=== PATIENT | male | born 1960 | race Caucasian/White ===

== ENCOUNTER → 2023-08-10 08:41 | Outpatient (REF) | payer OTHER, SELFPAY ==
--- NOTE | 2023-08-29 11:03 | OID.L.PAT ---
Pulmonary Nodule Pat Letter
- -
08/29/23
KYLEIGH MONTOYA
[address] [facility]
[place] [address]
Dear KYLEIGH,
A pulmonary nodule was seen on an imaging study done by [facility]. This was reviewed by the [facility] Pulmonary Nodule Advisory Board and the following recommendation was made:
Recommendation: No further follow up needed
If you have any questions, please do not hesitate to contact your primary care physician. If you are in need of a Physician, you can go to [email or web address] and click on 'Find a Provider'. Type 'Family Medicine' in the search.
Oncology Nurse Navigator
[facility]
[phone]
--- NOTE | 2023-08-29 11:04 | OID.L.REC ---
Pulmonary Nodule Follow Up
- Recommendation
08/29/23
Pulmonary Nodule Review Recommendations
Your patient, KYLEIGH MONTOYA, had a pulmonary nodule on an imaging study done on 08/10/2023 in the [facility].
This was reviewed by the [facility] Pulmonary Nodule Advisory Board and the following recommendation was made:
Recommendation: No further follow up needed
If you have any questions please do not hesitate to contact us.
Sincerely,
Oncology Nurse Navigator
[facility]
[phone]
== END ==
LOC: RAD 08:41
PROVIDERS: ATTENDING PHYSICIAN Nurse Practitioner Acute Care
DX: I35.0 Nonrheumatic aortic (valve) stenosis (principal)
CPT/HCPCS: 74174; 75572; Q9967

== ENCOUNTER → 2023-08-23 08:41 | Outpatient (REF) | payer OTHER, SELFPAY | LOC: RCS 08:41 | PROVIDERS: ATTENDING PHYSICIAN Thoracic Surgery (Cardiothoracic Vascular Surgery); FAMILY PHYSICIAN Nurse Practitioner Adult Health | DX: I25.10 Atherosclerotic heart disease of native coronary artery without angina pectoris (principal); I35.0 Nonrheumatic aortic (valve) stenosis | CPT/HCPCS: 93306 ==

== ENCOUNTER 2023-09-08 07:04 | Inpatient (IN) | payer OTHER, SELFPAY ==
[2023-08-29 08:46] VITALS: BMI 27.3
[2023-08-29 10:08] LABS: % Basophils 1.1 % (0-2); % Eosinophils 1.9 % (0-6); % Immature Granulocytes 0.3 % (0-0.5); % Lymphocytes 27.9 % (20.5-51.1); % Monocytes 10.5 % (1.7-9.3); % Neutrophils 58.3 % (42.2-75.2); Absolute Basophils 0.1 10^3/uL (0-0.2); Absolute Eosinophils 0.2 10^3/uL (0-0.7); Absolute Lymphocytes 2.6 10^3/uL (1.2-3.4); Absolute Neutrophils 5.5 10^3/uL (1.4-6.5); Hematocrit 44.9 % (39.0-52.0); Hemoglobin 14.5 g/dL (13.0-18.0); Mean Corp Hgb Conc. 32.3 g/dL (33.0-37.0); Mean Corpuscular Volume 77.4 fL (80.0-94.0); Mean Platelet Volume 10.9 fL (7.4-10.4); Nucleated Red Blood Cells % 0 % (-); Platelet Count 206 10^3/uL (130-400); Red Cell Dist. Width 14.6 % (11.5-14.5); White Blood Cell Count 9.4 10^3/uL (4.8-10.8)
[2023-08-29 10:17] LABS: APTT 28.8 Sec (23.4-35.0); INR 0.99; PT 12.9 Sec (11.4-14.6)
[2023-08-29 10:33] LABS: Urine Albumin Trace (Neg - Trace); Urine Bilirubin Negative (Negative); Urine Character Clear (Clear); Urine Color Yellow; Urine Glucose 3+ (Negative); Urine Ketone Negative (Negative); Urine Leukocyte Trace (Negative); Urine Nitrite Negative (Negative); Urine Occult Blood Trace (Negative); Urine Specific Gravity 1.015 (<1.030); Urine Urobilinogen Negative (Neg - 1+)
[2023-08-29 10:48] LABS: NT-proBNP 2530 pg/ml
[2023-08-29 10:56] LABS: ALT (SGPT) 44 U/L (0-50); AST (SGOT) 31 U/L (17-59); Albumin 4.8 g/dl (3.5-5.0); Alkaline Phosphatase 47 U/L (38-126); Blood Urea Nitrogen 23 mg/dl (9-20); Carbon Dioxide 25 mmol/L (22-30); Chloride 100 mmol/L (98-107); Direct Bilirubin 0.3 mg/dl (0.0-0.4); Estimated Creatinine Clearance 86 ml/min; Glucose 165 mg/dl (70-99); Potassium 4.8 mmol/L (3.5-5.1); Sodium 136 mmol/L (135-145); Total Bilirubin 0.7 mg/dl (0.2-1.3); Total Protein 7.9 g/dl (6.3-8.2); eGFR > 60.00
[2023-08-29 10:58] LABS: Urine White Cell 26-30 /HPF (0-5)
[2023-08-29 10:59] LABS: Urine Bacteria Few (Negative)
--- NOTE | 2023-08-29 11:12 | CM ---
spoke to pt and son via language line ( ukranian) in PAT's. we disucsssed preop tave teaching including lifting and driving restrictions. he lives with his son/DIL and 2 grandkids in an apt with 5 steps to enter. he uses a cane and walker if needed.
he has the TAVR educ book, soap and instructions. pts DIL and grandkids speak good albanian. plan is for TAVR 09/07, cm role explained and all questions anwered.
[2023-08-29 12:29] LABS: Glycohemoglobin (HgbA1c) 9.2 % (4.0-5.6)
[2023-09-08] VITALS (22 sets, daily range): BP systolic 124–161; BP diastolic 74–99; BMI 27.3
[2023-09-08 08:18] LABS: Glucose - Point of Care 195 mg/dl (70-99)
--- NOTE | 2023-09-08 09:07 | CM ---
Addendum entered by EFRAIN Frias 09/08/23 09:09:
Correction to below: patient is out of CT Transitional Care RN geographical area. If VN is needed, will need to refer to VN agency.
Original Note:
Pt. in OR today for planned TAVR procedure.
Anticipated DC plan is for home w/ CT Transitional Care RN.
CM to follow.
--- NOTE | 2023-09-08 10:00 | W.CVOR.SURPR ---
CVOR Surgeon Immed Pre Op
-
I have examined this patient prior to performance of the scheduled procedure.
The patient's condition is unchanged from the time of the dictated/written History and
Physical and the patient is able to undergo the scheduled procedure.
TF TAVR
Full Rescue
He tells me it's mostly his right groin/leg that bothers him at baseline
[2023-09-08 10:42] LABS: ACT-LR - POC 298 Seconds (116-155)
[2023-09-08 10:52] LABS: ACT-LR - POC 358 Seconds (116-155)
[2023-09-08 11:01] LABS: ACT-LR - POC 199 Seconds (116-155)
--- NOTE | 2023-09-08 11:02 | W.PN.CT.SURG ---
CT Surgery Operative Note
-
OPERATIVE REPORT
Preoperative Diagnosis: Severe aortic valve stenosis, symptomatic, s/p STEMI
Postoperative Diagnosis: Same
Procedure(s) Performed: Left trans femoral TAVR with a 26 mm, nominal, Herrmann TAVR valve
Date of Procedure: 09/08/2023
Comorbidities:
1. Severe aortic stenosis, symptomatic, low-flow low gradient
2. History of NC status post PCI
3. Severe peripheral vascular disease with claudication of the right lower extremity
4. Hypertension
5. Hyperlipidemia
6. Diabetes type 2
7. History of tobacco abuse
8. Obese
9. Acute on chronic congestive heart failure with volume overload, LVEDP pre-TAVR was 30 mmHg
Cardiac Surgeon: Martin Lion MD, MS
Mounter Saxophones: Tyrell Du MD
Anesthesia: Conscious Sedation and Local Analgesia
EBL: 200cc
Products: none
Implant: 26 mm HERRMANN Resilia DUSTIN, SN: [id number]
Indication(s) for Procedures: 63-year-old male with symptomatic severe aortic stenosis. CT-TAVR protocol revealed acceptable anatomy for TAVR access and implantation. He initially was being seen for aortic valve replacement with coronary artery
bypass grafting consideration however he developed an NC and underwent emergent stenting. His EF was depressed post procedure. He was reviewed by our multidisciplinary structural heart team shared decision making between his outpatient
second hand, our interventional cardiology, and our cardiac surgery team all with a consensus that he is now more appropriate for transcatheter intervention.
Start time: 1011hrs
Deployment time: 1044hrs
End time: 1056hrs
Radiation Dose (mGy): 269.92
DAP (cm2.Gy): 31.6917
Fluoroscopy time (minutes): 7.1
Contrast volume (ml): 63
TAVR gradient (mmHg): 3mmHg
Heparin Dose: 7000units
Protamine Dose: 30mg
Final Valve Positionin/30
LVEDP, mmH
Findings: Preoperative LVEF was 55% and was 55% following TAVR without inotropic support. Function was overall normal without regional wall motion abnormalities or dyskinesia. The aortic valve was well seated without detectable PVL and mean gradient
across the new valve was 3mmHg. following deployment of valve, the patient regained [place] rhythm and returned to sinus while on the seed laboratory technician table. There was successful placement of 26 mm abdominal volume TAVR valve without acute complications. Of
note, he has severe stenosis of his common iliac on the right side with dampening of the blood pressure approxi-20 mmHg. We dilated the left, iliac multiple times with different catheter sizes. The valve was able to pass without significant
obstruction. An LVEDP was measured and found to be 30 mmHg pre-TAVR deployment indicating acute on chronic congestive heart failure. Lasix will be given in the ICU.
Access:
1. Device -left common femoral artery, perclose x 2 + 8Fr angioseal
2. Pigtail -right common femoral artery no Angio-Seal was used as he will need to come back for intervention on his right common iliac artery
3. Transvenous Pacer -right common femoral vein
Description of Procedure: The patient was taken to the seed laboratory technician. Their identity and procedure to be performed were verified and they were positioned supine on the seed laboratory technician table. Induction via conscious sedation. The patient was then prepped and
draped from chin to thigh in a sterile fashion. A preoperative time-out was performed with all members of the team present. Arterial and venous access was performed using fluoroscopy using micropuncture and Seldinger technique. Two perclose devices
were used on the device side followed by access to the aorta with a stiff wire to facilitate E-sheath placement. Prior to placement of the e- sheath, we had to dilate the tract as well as the e-sheath. Propofol was used to lubricate the shaft of
the device sheath as well as lubricate the inside. Heparin was given. A stiff straight wire and AL-1 catheter was used to cross the aortic valve. An LVEDP was measured here. The stiff wire was exchanged for an extra stiff coiled tip wire. The
valve was prepped and mounted on to the device carrier. An ACT of >250 was achieved. We verified x 3 that the valve was mounted in the correct orientation with the skirt of the valve directed toward the tip of the device carrier. We advanced the
device into the descending thoracic aorta where the valve was them mounted onto the balloon under fluoroscopy. The device was flexed and advanced over the arch into the root and positioned across the aortic valve. Contrast fluoroscopy was used to
visualize the prosthesis across the valve and to guide positioning. A pigtail catheter in the RCC as used as a guide. We aimed to have the bottom of the device marker at the annular hinge point. The device sheath was pulled back. We performed a
quick pre-deployment time out. The pacer was turned on and had capture. Blood pressure fell accordingly, angiography was done to verify the intended final placement and the valve was deployed with 5 seconds of rapid pacing to nominal volume. The
balloon was deflated and the pacer was turned off. We had recovery of vitals. The device carrier was unflexed and positioned back in the descending thoracic aorta. A transthoracic echocardiogram was performed. The device was removed from the
E-Sheath maintaining wire access followed by removal of the E-sheath as we cinched down the perclose devices. There was acceptable hemostasis. The pigtail was withdrawn into the descending/abdominal and completion aortogram with runoff run-off
angiography was performed. There was no stenosis or dissection of the left iliofemoral systems. He had baseline right iliofemoral disease which will be addressed later. There was acceptable hemostasis of bilateral groins and manual pressure was
held following wire removal. Low dose protamine was administered after checking another ACT. Lasix will be given in the CVICU/recovery.
All instrument, sponge, and needle counts were confirmed to be correct x 2 at the end of the operation. The patient was transferred to the cardiac intensive care unit in stable condition.
I, Dr. Martin Lion, was present, scrubbed for, and performed all critical elements of this procedure.
Martin Lion MD
Cardiothoracic Surgeon
[facility]
This operative dictation was created using the [employer] dictation system. Please excuse any grammatical, typographical, or 'sound alike' errors
--- NOTE | 2023-09-08 11:14 | ITS.CL.TAVR ---
Wire Spinner - TAVR Report
TAVR PRocedure
Procedure Report:
TRANSCATHETER AORTIC VALVE REPLACEMENT REPORT
Date: 09/08/2023
Referring physician: Rafael Carey MD
Operators:
credit collection specialist: Nikko Du MD
Cardiac surgeon: Martin Lion MD
Procedure:
Conscious sedation was provided by anesthesia. Using a micropuncture technique, 6F sheaths were placed in the RFA and RFV. A transvenous pacemaker was advanced to the RV and excellent thresholds obtained. Angiography of the right femoral artery
sheath demonstrated a mid BUSINESS CONTINUITY MANAGER position and an 80-90% focal stenosis in the mid right external iliac artery. An angulated hydrophilic guidewire was needed to advance the pigtail catheter to the aortic root where low volume injections were performed
to identify an appropriate angle for valve deployment. Access was then obtained in the left femoral artery using a micropuncture technique. A 6Fsheath was placed and angiography confirmed a BUSINESS CONTINUITY MANAGER puncture site. Heparin 4000 units was administered.
Angiography showed a 50-60% proximal left external iliac artery stenosis which I did not feel needed to be treated to get the Ramos valve through the sheath. Two perclose sutures were preset using the preclose technique. An 8F sheath was placed
in the LFA and an Amplatz super stiff wire advanced into the thoracic aorta. The ileofemoral vessels were dilated using the Ramos 16 F dilator. An Ramos E sheath was advanced into the descending thoracic aorta. Further predilatation using the
16 Montenegrin dilator through the Ramos sheath was performed to maximize her chance of getting the valve through the borderline small external iliac artery. Propofol was used to coat the delivery system and the inside of the sheath to maximize chance
of success. Additional heparin 3000 units was administered. The valve was crossed using a diagnostic 6F AL1 catheter and a straight wire. An Amplatz extra stiff wire with a homemade curve was placed in the LV apex. Balloon aortic valvuloplasty was
not performed. An Ramos 26 mm Ramya S3 valve (Resilia) was then advanced through the E sheath and prepared for transit around the aortic arch. The valve was carefully advanced across the aortic annulus and deployed during rapid ventricular
pacing. Echocardiography and aortography confirmed an excellent result. The mean gradient across the valve was 3 mmHg with no aortic insufficiency. The valve deployment system was removed. The Ramos E sheath was then removed and hemostasis
obtained with the two perclose sutures and an 8 Montenegrin Angio-Seal. Final angiography demonstrated no evidence of ileofemoral dissection/perforation and good runoff below the common femoral artery. The pacemaker was removed and the RFV sheath
secured in position. 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
Radiation (mGy): 269
DAP (cm2.Gy): 31.9
Fluoroscopy time: 7.1 minutes
Conclusions: Successful placement of 26 mm Ramya S3 aortic valve via left transfemoral approach with no acute complications.
Copy to: Rafael Carey MD, Krhis Queen MD
--- NOTE | 2023-09-08 11:29 | W.PN.UPDATE ---
Update Note
Progress Note Update
Reviewed Mr. Gutierrez with the heart team in the preTAVR SDM meeting and confirmed 26mm S3 via left transfemoral access. Patient will resume aspirin and Brilinta post TAVR. LVEDP 30 mmHg. #26mm S3 Resilia (serial# [id number]) successfully deployed via
left transfemoral access. Post implant MG 3mmHg.
[2023-09-08 12:41] LABS: Glucose - Point of Care 163 mg/dl (70-99)
[2023-09-08] MEDS: LASIX 40 MG IV (13:25)
[2023-09-08] MEDS: ANCEF 10 IV (13:25)
[2023-09-08] MEDS: ASPIR LOW (ENTERIC COATED) PO (13:26)
[2023-09-08] MEDS: ROXICODONE 2.5 MG PO (13:54)
--- NOTE | 2023-09-08 14:13 | CM ---
Addendum entered by Patricia Wei RN 09/08/23 14:14:
Patient is in the OR today.
Original Note:
Chart reviewed. Patient is Persian speaking, independent of ADLS, lives with his son/DIL and 2 grandkids in an apt with 5 steps to enter. he uses a cane and walker if needed. Plan is for the patient to return home. CM to follow
[2023-09-08 17:22] LABS: Glucose - Point of Care 195 mg/dl (70-99)
[2023-09-08] MEDS: GLUCOTROL 5 MG PO (17:25)
[2023-09-08] MEDS: CRESTOR 10 MG PO (17:25)
[2023-09-08] MEDS: ANCEF 5 IV (17:26)
[2023-09-08] MEDS: NOVOLOG FLEXPEN-MODERATE RESISTANCE SC (17:27)
--- NOTE | 2023-09-08 18:03 | PTCARENOTE ---
Pt received from recovery area post TAVR. Pt speaks only [place], translation provided by his daughter. Pt with bilateral femoral groin sites, some drainage from left femoral artery site, dressing changed once and steristrip applied, no further
bleeding or hematoma noted. (Pt c/o right groin/leg pain which is not new, plan for stent in 4 weeks per ) Pt voiding without problem. Pt up off bedrest, walks with a cane independently. Telemetry shows sinus rhythm with frequent PVC's and
pairs. Plan for CXR and ECHO on 09/08.
[2023-09-08] MEDS: ISMO 20 MG PO (19:42)
[2023-09-08] MEDS: ZOFRAN 4 MG IV (20:25)
--- NOTE | 2023-09-08 20:33 | PTCARENOTE ---
Ivett SANCHEZ at bedside. Pt w/ one episode of emesis. IV Zofran administered. See MAR. L groin w/ drainage noted on dsg. R groin c/d/i. Pt w/ b/l pedal doppler pulses. neuro check WNL. See worklist. Currently in bed; call priscila w/in reach. at
bedside.
[2023-09-08] MEDS: BRILINTA 90 MG PO (20:43)
[2023-09-08 21:35] LABS: Glucose - Point of Care 154 mg/dl (70-99)
[2023-09-08 21:40] LABS: Hematocrit 41.9 % (39.0-52.0); Mean Corp Hgb Conc. 33.4 g/dL (33.0-37.0); Mean Corpuscular Hgb 25.3 pg (27.0-31.0); Mean Corpuscular Volume 75.6 fL (80.0-94.0); Mean Platelet Volume 10.6 fL (7.4-10.4); Platelet Count 188 10^3/uL (130-400); Red Blood Cell Count 5.54 10^6/uL (4.70-6.10); Red Cell Dist. Width 14.6 % (11.5-14.5); White Blood Cell Count 13.1 10^3/uL (4.8-10.8)
--- NOTE | 2023-09-08 21:40 | PTCARENOTE ---
Pt w/ another episode of emesis. Ivett SANCHEZ at bedside to translate. Pt reports feeling better after. PRN Maalox and Compazine ordered as needed. BMP, CBC, and Mag ordered and drawn. Labs sent. Pt appears shaky. Accu-check 154. BP 132/91. Pt told to
use call francois for assistance and keep HOB above 30 degrees.
[2023-09-08 22:19] LABS: Blood Urea Nitrogen 26 mg/dl (9-20); Carbon Dioxide 21 mmol/L (22-30); Chloride 100 mmol/L (98-107); Estimated Creatinine Clearance 86 ml/min; Glucose 156 mg/dl (70-99); Magnesium 1.8 mg/dl (1.6-2.3); Potassium 4.3 mmol/L (3.5-5.1); Sodium 136 mmol/L (135-145); eGFR > 60.00
--- NOTE | 2023-09-08 23:03 | PTCARENOTE ---
Pt w/ 102.9 temp. Ivett SANCHEZ made aware. Swabbed pt for covid and flu. Urine cultures ordered.
[2023-09-08 23:18] LABS: COVID-19 Antigen Negative (Negative)
[2023-09-09] VITALS (13 sets, daily range): BP systolic 89–153; BP diastolic 56–86
--- NOTE | 2023-09-09 00:07 | PTCARENOTE ---
Ivett Valentino at bedside. Rechecked temp for 100.9. Pt refusing tylenol. Pt w/ one incontinent episode. Hygiene performed. L vaishali dsg. changed. Hemestasis pad, gauze and Tegaderm applied. R vaishali is c/d/i.
[2023-09-09 04:27] LABS: Hematocrit 42.8 % (39.0-52.0); Hemoglobin 13.8 g/dL (13.0-18.0); Mean Corp Hgb Conc. 32.2 g/dL (33.0-37.0); Mean Corpuscular Hgb 25.3 pg (27.0-31.0); Mean Corpuscular Volume 78.4 fL (80.0-94.0); Mean Platelet Volume 10.5 fL (7.4-10.4); Platelet Count 174 10^3/uL (130-400); Red Blood Cell Count 5.46 10^6/uL (4.70-6.10); Red Cell Dist. Width 14.6 % (11.5-14.5); White Blood Cell Count 19.9 10^3/uL (4.8-10.8)
[2023-09-09 04:54] LABS: Blood Urea Nitrogen 25 mg/dl (9-20); Calcium 9.8 mg/dl (8.4-10.2); Carbon Dioxide 21 mmol/L (22-30); Chloride 101 mmol/L (98-107); Estimated Creatinine Clearance 86 ml/min; Glucose 148 mg/dl (70-99); Potassium 3.9 mmol/L (3.5-5.1); Sodium 139 mmol/L (135-145); eGFR > 60.00
--- NOTE | 2023-09-09 04:58 | PTCARENOTE ---
Pt temp down to 98.0. Pt appears less drowsy and more alert. No more episodes of emesis. Pt reports feeling better.
[2023-09-09 06:41] LABS: Urine Albumin Negative (Neg - Trace); Urine Bilirubin Negative (Negative); Urine Character Clear (Clear); Urine Color Yellow; Urine Glucose 3+ (Negative); Urine Ketone 2+ (Negative); Urine Leukocyte Trace (Negative); Urine Nitrite Negative (Negative); Urine Occult Blood Negative (Negative); Urine Specific Gravity 1.015 (<1.030); Urine Urobilinogen Negative (Neg - 1+)
--- NOTE | 2023-09-09 07:14 | W.PN.CT ---
Documented by User: Ivett Rasmussen PA-C 09/09/23 07:14
Today's Communication / Plan
-
-pod #1
-new LBBB postop on 09/07 - noted to have RBBB on ECG this am. Will leave NPO and discuss with Cardiology re: possible pacer. Lopressor is on hold
-vomited several times undigested food - will avoid narcotics, felt slightly better after Zofran. Denies abdominal discomfort, abdom exam unremarkable
-Tm 102.9- pt was under multiple blankets - normal temp this am. Checked UA, nasal swab (negative). Denies cough or urinary sxs. BP 134/75, pox 97% on 2L
-diuresed with 40 iv Lasix post TAVR (LVEDP was 30)
-nsr high 90s-low 100s, PVCs. No soren or pauses
-Echo today
-current meds (ASA, Brilinta, Diovan, Norvasc, Lasix, Ismo, Crestor, Glucotrol). Lopressor held d/t new LBBB
-encourage IS, OOB, ambulate
Assessment / Plan
-
- Symptomatic severe - s/p Left trans femoral TAVR with a 26 mm, nominal, Ramos TAVR valve on 09/08/23, pod #1
- Acute on chronic congestive heart failure with volume overload, LVEDP pre-TAVR was 30 mmHg- diuresed with 40 mg iv Lasix
- Intraop TTE: LVEF was 55% preop and postop without inotropic support, regional wma.The aortic valve was well seated without detectable PVL and mean gradient across the new valve was 3mmHg.
- CAD, Hx STEMI, s/p RCA stent 2011 and LAD and Circ stents 2018 - on ASA and Brilinta at home
- Severe peripheral vascular disease with claudication of the right lower extremity
- Hypertension
- Hyperlipidemia
- Diabetes type 2 (HgA1c 9.2)
- History of tobacco abuse
- Acute postop LBBB on 09/07 and RBBB on 09/08
- Acute postop nausea/vomiting/fever
Discussed patient care with: Nursing and Care Team
Subjective
Procedure
- s/p Left trans femoral TAVR with a 26 mm, nominal, Ramos TAVR valve on 09/08/23
-
Date of Service: September 08, 2023
Objective Data
-
Lab Results
09/08/23 21:33
PT 12.9 Sec (11.4-14.6) 08/29/23 09:28
INR 0.99 08/29/23 09:28
APTT 28.8 Sec (23.4-35.0) 08/29/23 09:28
Vital Signs
Vital Signs
Temp Pulse Resp BP Pulse Ox
99.1 F 96 20 155/99 97
09/08/23 20:02 09/08/23 20:45 09/08/23 20:02 09/08/23 19:27 09/08/23 20:02
CT Intake/Output/Weight
09/08/23 09/08/23 09/09/23
06:59 18:59 06:59
Intake Total 240 / 240
Output Total 750 / 750
Balance -510 / -510
SaO2: 97
Physical Exam
-
General: Awake and AOx3 (speaks Ukranian and Hungarian)
Cardiovascular: Regular rate & rhythm, No Murmurs and No Rub
Respiratory: Decreased Breath Sounds
Incision: Other (groins are cdi, soft, nontender, no hematoma b/l)
Extremities: No Edema (DPs by Doppler b/l, warm b/l)
Data Reviewed
-
Lab Results: Results Reviewed
Medications: Active Meds Reviewed
Chest X-Ray: Report Reviewed and Image Reviewed
ECG: Report Reviewed and Image Reviewed

Documented by User: Barbra LangstonAPOLLO wallis 09/09/23 11:37
Assessment / Plan
-
- Symptomatic severe - s/p Left trans femoral TAVR with a 26 mm, nominal, Ramos TAVR valve on 09/08/23, pod #1
- Acute on chronic congestive heart failure with volume overload, LVEDP pre-TAVR was 30 mmHg- diuresed with 40 mg iv Lasix
- Intraop TTE: LVEF was 55% preop and postop without inotropic support, regional wma.The aortic valve was well seated without detectable PVL and mean gradient across the new valve was 3mmHg.
- CAD, Hx STEMI, s/p RCA stent 2011 and LAD and Circ stents 2017 - on ASA and Brilinta at home
- Severe peripheral vascular disease with claudication of the right lower extremity
- Hypertension
- Hyperlipidemia
- Diabetes type 2 (HgA1c 9.2)
- History of tobacco abuse
- Acute postop LBBB on 09/07 and RBBB on 09/08
- Acute postop nausea/vomiting/fever
- acute on chronic systolic heart failure (LVEDP 30mmHg)
[2023-09-09 07:34] LABS: Urine Bacteria Few (Negative); Urine Red Blood Cell 0-2 /HPF (0-2); Urine White Cell 0-2 /HPF (0-5)
--- NOTE | 2023-09-09 07:43 | W.PN.ANS.POP ---
Anesthesia Post Operative
- Anesthesia Post Op Note
Vital Signs Stable-See Nursing Note: Yes
Airway Patent: Yes
Adequate Pain Control: Yes
Change in Mental Status: No
Current Postoperative Nausea & Vomiting: Yes (antiemetics ordered PRN)
Anesthesia Complications: No
General Anesthetic Recall: No
Unplanned Admission: No
Post Op Hydration Adequate: Yes
- -
Pt does not speak Belarusian, spoke with RN- pt nausea and vomiting last night. Temp increased, all other VSS.
[2023-09-09 08:41] LABS: Glucose - Point of Care 141 mg/dl (70-99)
[2023-09-09] MEDS: CRESTOR 10 MG PO (09:52)
[2023-09-09] MEDS: GLUCOTROL 5 MG PO ×2 (09:53→18:44)
[2023-09-09] MEDS: NORVASC 10 MG PO (09:53)
[2023-09-09] MEDS: LASIX 20 MG PO (09:53)
[2023-09-09] MEDS: ASPIR LOW (ENTERIC COATED) 81 MG PO (09:53)
[2023-09-09] MEDS: ISMO 20 MG PO ×2 (09:53→20:14)
[2023-09-09] MEDS: NOVOLOG FLEXPEN-MODERATE RESISTANCE SC ×2 (09:54→14:37)
--- NOTE | 2023-09-09 09:55 | PTCARENOTE ---
Pt denies nausea, OOB with assist of one, encouraged to use incentive spirometer.
--- NOTE | 2023-09-09 11:12 | W.PN.UPDATE ---
Update Note
Progress Note Update
Patient with RBBB today and LBBB 09/08/23. cardiology consulted for PPM. Tmax was 102.9F last evening and morning WBC 19.9. Blood/urine cultures ordered.
--- NOTE | 2023-09-09 11:13 | CM ---
Chart reviewed. Patient is independent of ADLS, lives with his son and DIL, 2 grandkids in a apartment, 5 ARLE[address], ambulates with a SPC and RW. Patients DIL notified us of patient's change in insurance to [facility], ID# [id number]. Admissions
and CT surgery made aware. Plan is for the patient to return home. CM to follow
--- NOTE | 2023-09-09 11:25 | PN.CDI ---
CDI
- -
CDI:
Physician Documentation Request
Admit Date: 09/08/23 07:04
Dear Doctor Amisha,
09/08 Progress note as well as OR report states ' Acute on chronic congestive heart failure with volume overload'
Echo 09/07 report includes 'EF 55-60%'
Please provide further specificity regarding the most likely type of CHF you are evaluating, treating or monitoring.
Type
Systolic
Diastolic
Combined Systolic/Diastolic
Other
Use of terms such as suspected, likely, concern for, or probable (associated with a specific diagnosis that is being evaluated, monitored, or treated as if it exists) are acceptable and can be coded in the inpatient setting, when documented at the
time of discharge.
Thank you,
Abi Nguyen RN, BSN
CDI Specialist
tiger text
Please use your independent medical judgment in providing your response.
--- NOTE | 2023-09-09 12:21 | W.PN.CD ---
Today's Communication / Plan
-
- NPO after midnight
- PPM tomorrow in AM.
Impression / Plan
-
:
S/P 26mm Ramya S3 TAVR- 09/07. No acute complications and good hemodynamic result. Spiked fever to 102.9 09/08 AM.
WBC 19.9k now down to 12.7. BC x 2 drawn. Urine cx sent.
ID is following and treating empirically with antibiotics.
ECHO 09/08 shows gradient 3 mm Hg and no AI
Fever: ID to decide about ABX while blood cultures percolate
Severe conduction system disease
-alternating BBB -suggestive of infrahisian block
- had LBBB and then some RBBB.
-Dobutamine started and currently sinus tachycardia with 2:1 conduction noted
Expect PPM on 09-11
-Had another episode of 10-second pause this afternoon 09/11/23 . Transcutaneous pads in place.
-Currently asymptomatic and tolerating dobutamine 2.5.
-Plan for pacemaker in a.m.
Outpt tack cleaner Rafael Carey
Physical Exam
Vital Signs/Labs
Vital Signs
Temp Pulse Resp BP Pulse Ox
98.2 F 85 20 118/58 97
09/09/23 11:25 09/09/23 07:45 09/09/23 11:25 09/09/23 07:29 09/09/23 11:25
09/08/23 09/09/23 09/10/23
06:59 06:59 06:59
Actual Weight 78.925 kg
09/09/23 04:02
09/09/23 04:02
PT 12.9 Sec (11.4-14.6) 08/29/23 09:28
INR 0.99 08/29/23 09:28
APTT 28.8 Sec (23.4-35.0) 08/29/23 09:28
Magnesium 1.8 mg/dl (1.6-2.3) 09/08/23 21:33
08/29/23
09:28
Ibo-L-Vngacfbxsbp Pept 2530
Physical Exam
Constitutional: No acute distress and Comfortable
EENT: Anicteric and Moist mucous membranes
Cardiovascular: Rhythm & rate is regular, Pedal edema is absent and JVD pressure is normal
Respiratory: Respiratory effort normal, Lungs clear to auscul. and Wheeze Absent
GI: Soft, Distention absent and Non tender
Neuro/Psych: Alert, Oriented and AO x 3
Data Reviewed
-
Date of Service: September 09, 2023
Medical Decision Making: Reviewed Test Results and Independent Historian Assessment
EKG: Tracing Personally Visualized and interpreted
Echo: Report Reviewed by me
Labs: Labs Reviewed by me
Old Records: Reviewed
Critical Care Time (in minutes): 35
[2023-09-09 12:29] LABS: Glucose - Point of Care 126 mg/dl (70-99)
--- NOTE | 2023-09-09 13:13 | W.PN.CD ---
Today's Communication / Plan
-
ID consult requested re possible empiric ABX until cultures back
PPM Tuesday (has shown RBBB and LBBB)
Impression / Plan
-
: S/P 26mm Ramya S3 TAVR yesterday 09-07. No acute compications and good hemodynamic result. Spiked fever to 102.9 last night. He feels 'normal'. WBC 19.9k this AM. BC x 2 drawn.Urine cx sent. I asked ID to decide whether to treat with IV ABX
until blood cx results are back in 48-72 hours. ECHO today shows gradient 3 mm Hg and no AI
Fever: ID to decide about ABX while blood cultures percolate
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 PPM was to be placed but deferred today due to fever last night. Expect PPM on 09-11
Outpt wreath maker Rafael Carey
I had family meeting using cook helper pastry phone. All questions answered.
Physical Exam
Vital Signs/Labs
Vital Signs
Temp Pulse Resp BP Pulse Ox
98.2 F 85 20 118/58 97
09/09/23 11:25 09/09/23 07:45 09/09/23 11:25 09/09/23 07:29 09/09/23 11:25
09/08/23 09/09/23 09/10/23
06:59 06:59 06:59
Actual Weight 174 lb
09/09/23 04:02
09/09/23 04:02
PT 12.9 Sec (11.4-14.6) 08/29/23 09:28
INR 0.99 08/29/23 09:28
APTT 28.8 Sec (23.4-35.0) 08/29/23 09:28
Magnesium 1.8 mg/dl (1.6-2.3) 09/08/23 21:33
08/29/23
09:28
Sdq-W-Yrtstbpvvms Pept 2530
Physical Exam
Constitutional: No acute distress and Comfortable
EENT: Anicteric
Cardiovascular: Rhythm & rate is regular and Murmur/rub/gallop absent
Respiratory: Respiratory effort normal and Lungs clear to auscul.
GI: Non tender
Neuro/Psych: AO x 3 and Motor deficits absent
Other: Cath Site (both groins clean, dry no hematoma)
Data Reviewed
-
Date of Service: September 09, 2023
--- NOTE | 2023-09-09 13:37 | CON.ID ---
Consultation
-
Date/Time Consultation Requested: September 09, 2023 1309
Date/Time Consultation Performed: September 09, 2023 1340
Requesting Provider: Dr. Nikko Du
Performing Provider: Dr. Nanci Moran
Reason for Consultation: Fever postop TAVR
Chief Complaint / Past History
Chief Complaint
Valve surgery
History of Present Illness
63-year-old male with history of diabetes mellitus, coronary artery disease, severe aortic stenosis, who was electively admitted yesterday September 08, 2023 and underwent TAVR yesterday. Post- op right bundle branch block and left bundle branch block,
planned for PPM placement today. However last night he spiked a fever to 102.9 then 100.9 at midnight. Today his white count increased from 13.1-19.9. PPM placement cancelled. Today patient reports he feels well. No chills/sweats. No cough. No
n/v/diarrhea. No dysuria/urgency.
Past History
Additional Past Medical History:
Diabetes mellitus type 2
Hypertension
HLD
CAD status post stents
Aortic stenosis
CHF
PAD
Pulmonary nodule
Allergy History:
No Known Allergies Allergy (Verified 09/08/23 07:25)
Medications Reviewed: Yes
Current Antibiotics:
none
Social History
Tobacco: Former Smoker
Alcohol: None
Drug: None
Personal:
Family History
Family History: Not Pertinent
Review of Systems
Review of Systems
General: Negative Chills or Change in Appetite
HEENT: Negative Sinus Problems, Headache or Pharyngitis
Cardiovascular: Negative Chest Pain
Respiratory: Negative Dyspnea or Cough
Gasteroenterology: Negative Nausea or Vomiting
Genital / Urological: Negative Dysuria or Flank Pain
Skin / Hair / Nails: Negative Rash
Neurological: Negative Headache or Dizziness
All systems: All other systems were reviewed and were negative
Vital Signs
Temp Pulse Resp BP Pulse Ox
98.2 F 85 20 118/58 97
09/09/23 11:25 09/09/23 07:45 09/09/23 11:25 09/09/23 07:29 09/09/23 11:25
Selected Entries
09/08/23
23:02 09/09/23
00:06
Temp 102.9 F H 100.9 F H
Physical Exam
Physical Exam
Constitutional: No Acute Distress and Comfortable
Head: Other (No frontal or maxillary sinus tenderness,.)
Eyes: No Conjunctival Hemorrhage and Sclera Anicteric
Cardiovascular: Regular Rate and S1/S2
Pulmonary: Clear
Gastrointestinal: Soft, Non Tender, Non Distended and Normal Bowel Sounds
Genito-Urinary: Negative CVA Tenderness
Extremities: Negative Edema or Erythema
Musculoskeletal: Negative Spinal Tenderness
Neurological: AO x 3
Lab / Diagnostic Study Results
09/09/23 04:02
09/09/23 04:02
Abs Immat Gran (auto) 0.0 10^3/uL (0-0.05) 08/29/23 09:28
Absolute Neuts (auto) 5.5 10^3/uL (1.4-6.5) 08/29/23 09:28
Absolute Lymphs (auto) 2.6 10^3/uL (1.2-3.4) 08/29/23 09:28
Absolute Monos (auto) 1.0 10^3/uL (0.1-0.6) H 08/29/23 09:28
Absolute Basos (auto) 0.1 10^3/uL (0-0.2) 08/29/23 09:28
Immature Gran % 0.3 % (0-0.5) 08/29/23 09:28
Neutrophils % 58.3 % (42.2-75.2) 08/29/23 09:28
Lymphocytes % 27.9 % (20.5-51.1) 08/29/23 09:28
Monocytes % 10.5 % (1.7-9.3) H 08/29/23 09:28
Eosinophils % 1.9 % (0-6) 08/29/23 09:28
Basophils % 1.1 % (0-2) 08/29/23 09:28
PT 12.9 Sec (11.4-14.6) 08/29/23 09:28
INR 0.99 08/29/23 09:28
Ur Squamous Epith Cells 3-5 /LPF (Few) 09/09/23 05:56
Microbiology Results
Micro:
09/09/23 12:16 Blood Culture - Pending
Blood/Venous
09/09/23 11:39 Blood Culture - Pending
Blood/Venous
09/09/23 05:56 Urine Culture - Pending
Urine
09/08/23 22:58 Influenza Types A & B (GISELLE) - Final
Nasal Swab Negative for Influenza A & B, NAAT
Negative results must be combined with clinical observations
and patient history.
Nucleic Acid Amplification test (NAAT)performed on the
[employer] platform.
08/29/23 09:11 MRSA Screen - Final
Nose No Methicillin Resistant Staphylococcus aureus isolated.
08/29/23 09:45 Urine Culture - Final
Urine Streptococcus agalactiae
09/09/23 CXR: No radiographic evidence for complication following TAVR. Mild cardiomegaly without evidence for acute pulmonary edema.
Assessment / Plan
# Fever and leukocytosis
-suspect reactive to POD#1 TAVR
- CXR neg, UA neg.
- COVID/Influenza negative.
-Blood cultures pending.
- Can start empiric cefazolin pending cx data.
- Follow temps/wbc.
[2023-09-09] MEDS: DIOVAN PO (14:37)
[2023-09-09] MEDS: ANCEF 10 IV ×2 (15:03→21:59)
[2023-09-09 16:46] LABS: Glucose - Point of Care 166 mg/dl (70-99)
--- NOTE | 2023-09-09 18:11 | W.PN.UPDATE ---
Update Note
Progress Note Update
Notified of a 4.5-second pause observed by RN on monitor. Patient was getting out of bed and patient became unresponsive. Per Dr. Du, initiate dobutamine at 2.5mcg/kg/min. Will have atropine and defibrillator at bedside. Patient to go for a
permanent pacemaker on Tuesday, permanent pacemaker today was delayed due to fevers last night. Will continue to monitor fever trend and white blood cell count trend. If patient has recurrent pauses may need to go to [employer] for temporary pacing
wire. Attending physician notified.
[2023-09-09] MEDS: NOVOLOG FLEXPEN-MODERATE RESISTANCE 1 UNITS SC (18:44)
[2023-09-09] MEDS: DOBUTREX 500 MG 250 IV (18:55)
--- NOTE | 2023-09-09 19:00 | PTCARENOTE ---
Patient received as transfer from IVU. VS obtained, stable. Patient Indian speaking, updated to reason for transfer, states he understands. at bedside. Dobutamine infusion started as ordered.
--- NOTE | 2023-09-09 19:36 | PTCARENOTE ---
Pt seen by , blood and urine cultures done. Pt started on ancef. Max. temp this morning of 100 @07:30. Telemetry showed sinus rhythm with RBBB at a rate @ 90's for most of the day.
At 18:15 pt helped OOB to the chair to eat. Heart rate dropped to 30, pt briefly unresponsive, 4.5 second pause noted. Rapid response called and later cancelled. Pt responsive again (significant language barrier) , BP 138/80. Defib pads placed on
his chest. Dr. Du notified and also Dr. Albrecht. Diamond SANCHEZ also aware, pt transferred to CVICU for close monitoring and dobutamine. Plan conveyed to pt and his and they stated understanding.
--- NOTE | 2023-09-09 19:50 | ECGCV ---
<Ed Edwin, CTPA> notified of ECG critical value identified by electronic interpretation on ECG completed on <09/09/2023>, at <1947>.
--- NOTE | 2023-09-09 20:00 | PTCARENOTE ---
assumed care of pt from previous RN. pt is Maltese speaking, language line used for communication and assessment. pt A&Ox4. EKG obtained per CV BAG BUNDLERFeng. pt sinus tach w/ 2nd degree AVB w/ 2:1 AV conduction, RBBB. POX 96% on 2 L NC. abd s/n, +BS.
no c/o nausea at time of assessment. voiding in urinal. no edema noted. doppler DP pulses obtained. palpable radial pulses. b/l groin sites CDI on assessment. see worklist for complete nursing assessment, interventions, VS, and I&Os.
[2023-09-09] MEDS: MAGNESIUM OXIDE 500 MG PO (21:59)
[2023-09-09] MEDS: KCL ELIXIR 40 MEQ PO (21:59)
[2023-09-10] VITALS (19 sets, daily range): BP systolic 83–169; BP diastolic 39–88; BMI 26.0
--- NOTE | 2023-09-10 00:15 | PTCARENOTE ---
Addendum entered by Bertha Goncalves RN 09/10/23 00:32:
pt on 2 L NC.
Original Note:
pt reassessed. VSS. sinus tach on tele-monitor, RBBB. POX 96%. pt remains afebrile. no c/o pain at this time.
[2023-09-10 00:29] LABS: Glucose - Point of Care 164 mg/dl (70-99)
--- NOTE | 2023-09-10 04:00 | PTCARENOTE ---
assessment remains unchanged. VSS. sinus tach on tele monitor. HR low 100s. POX 97% on 2 L NC. AM labs collected and sent.
[2023-09-10 04:05] LABS: % Basophils 0.4 % (0-2); % Eosinophils 0.3 % (0-6); % Immature Granulocytes 0.5 % (0-0.5); % Lymphocytes 13.4 % (20.5-51.1); % Neutrophils 71.4 % (42.2-75.2); Absolute Basophils 0.1 10^3/uL (0-0.2); Absolute Eosinophils 0.1 10^3/uL (0-0.7); Absolute Immature Granulocytes 0.1 10^3/uL (0-0.05); Absolute Lymphocytes 2.3 10^3/uL (1.2-3.4); Absolute Monocytes 2.4 10^3/uL (0.1-0.6); Hematocrit 40.4 % (39.0-52.0); Mean Corp Hgb Conc. 32.2 g/dL (33.0-37.0); Mean Corpuscular Hgb 25.3 pg (27.0-31.0); Mean Corpuscular Volume 78.8 fL (80.0-94.0); Mean Platelet Volume 10.8 fL (7.4-10.4); Nucleated Red Blood Cells % 0 % (-); Platelet Count 166 10^3/uL (130-400); Red Blood Cell Count 5.13 10^6/uL (4.70-6.10); Red Cell Dist. Width 14.6 % (11.5-14.5); White Blood Cell Count 16.8 10^3/uL (4.8-10.8)
[2023-09-10 05:07] LABS: Blood Urea Nitrogen 21 mg/dl (9-20); Calcium 9.8 mg/dl (8.4-10.2); Carbon Dioxide 22 mmol/L (22-30); Chloride 98 mmol/L (98-107); Estimated Creatinine Clearance 98 ml/min; Glucose 146 mg/dl (70-99); Sodium 135 mmol/L (135-145); eGFR > 60.00
[2023-09-10] MEDS: ANCEF 10 IV ×3 (05:20→21:04)
[2023-09-10 06:07] LABS: INR 1.09
[2023-09-10 06:08] LABS: APTT 33.3 Sec (23.4-35.0)
--- NOTE | 2023-09-10 06:49 | W.PN.CT ---
Today's Communication / Plan
-
-No major issues overnight
-New postop LBBB/RBBB
-Postop Pauses, 4.5 sec longest
-Postop fever. Afebrile overnight, TM 98.7, WBC 16.8 down from 19.9 yesterday
-On Ancef per ID, blood cultures without growth thus far
-For PPM likely Tuesday
-Postop Echo shows intact TAVR with PG/MG 10/16 no AI
-Cont. current meds (ASA, Brilinta, Diovan, Norvasc, Lasix, Ismo, Crestor, Glucotrol). Lopressor held d/t new LBBB
-OOB into chair
-Monitor groins, currently C/D/I without significant hematoma
Assessment / Plan
-
- Symptomatic severe - s/p Left trans femoral TAVR with a 26 mm, nominal, Ramos TAVR valve on 09/08/23, pod #2
- Acute on chronic congestive heart failure with volume overload, LVEDP pre-TAVR was 30 mmHg- diuresed with 40 mg iv Lasix
- Intraop TTE: LVEF was 55% preop and postop without inotropic support, regional wma.The aortic valve was well seated without detectable PVL and mean gradient across the new valve was 3mmHg.
- CAD, Hx STEMI, s/p RCA stent 2011 and LAD and Circ stents 2017 - on ASA and Brilinta at home
- Severe peripheral vascular disease with claudication of the right lower extremity
- Hypertension
- Hyperlipidemia
- Diabetes type 2 (HgA1c 9.2)
- History of tobacco abuse
- Acute postop LBBB on 09/07 and RBBB on 09/08
- Acute postop tachycardia
- Acute postop nausea/vomiting/fever
- acute on chronic systolic heart failure (LVEDP 30mmHg)
Discussed patient care with: Cardiology, Nursing, Respiratory Therapy, Pharmacy and Care Team
Subjective
Procedure
- s/p Left trans femoral TAVR with a 26 mm, nominal, Ramos TAVR valve on 09/08/23
-
Date of Service: September 10, 2023
Pt c/o mild incisional pain, otherwise feels well
Objective Data
-
Lab Results
09/10/23 03:38
09/10/23 03:38
PT 14.0 Sec (11.4-14.6) 09/10/23 05:47
INR 1.09 09/10/23 05:47
APTT 33.3 Sec (23.4-35.0) 09/10/23 05:47
Vital Signs
Vital Signs
Temp Pulse Resp BP Pulse Ox
98.7 F 105 16 151/81 98
09/10/23 05:00 09/10/23 06:30 09/10/23 06:30 09/10/23 06:00 09/10/23 05:00
CT Intake/Output/Weight
09/09/23 09/09/23 09/10/23
06:59 18:59 06:59
Intake Total 240 / 293.1 53.1 / 293.1
Output Total 600 / 600
Balance 240 / -306.9 -546.9 / -306.9
SaO2: 98 (2L)
Physical Exam
-
General: Awake, Oriented and AOx3
Cardiovascular: Regular rate & rhythm, No Murmurs, No Rub and No Gallop
Respiratory: Decreased Breath Sounds
Incision: Clean, Dry, Intact and Dressing Intact
Extremities: No Edema
Data Reviewed
-
Lab Results: Results Reviewed
Medications: Active Meds Reviewed
Chest X-Ray: Report Reviewed and Image Reviewed
ECG: Report Reviewed and Image Reviewed
--- NOTE | 2023-09-10 07:54 | W.PN.CD ---
Today's Communication / Plan
-
-Plan for pacemaker on Tuesday
-If any significant pauses noted, will place temporary pacemaker over the weekend
Impression / Plan
-
:
S/P 26mm Ramya S3 TAVR yesterday 09-07. No acute complications and good hemodynamic result. Spiked fever to 102.9 09/08 AM. He feels 'normal'.
WBC 19.9k now down to 16.8. BC x 2 drawn. Urine cx sent.
ID is following and treating empirically with antibiotics.
ECHO today shows gradient 3 mm Hg and no AI
Fever: ID to decide about ABX while blood cultures percolate
Severe conduction system disease
-alternating BBB -suggestive of infrahisian block
- had LBBB and then some RBBB.
-Had presyncope and 4.5-second pause
-Transferred to ICU
-Dobutamine started and currently sinus tachycardia with 2:1 conduction noted
Expect PPM on 09-11
Outpt yarding supervisor Rafael Carey
Physical Exam
Vital Signs/Labs
Vital Signs
Temp Pulse Resp BP Pulse Ox
98.7 F 105 16 151/81 98
09/10/23 05:00 09/10/23 06:30 09/10/23 06:30 09/10/23 06:00 09/10/23 06:53
09/09/23 09/10/23 09/11/23
06:59 06:59 06:59
Actual Weight 78.925 kg 75.2 kg
09/10/23 03:38
09/10/23 03:38
PT 14.0 Sec (11.4-14.6) 09/10/23 05:47
INR 1.09 09/10/23 05:47
APTT 33.3 Sec (23.4-35.0) 09/10/23 05:47
Magnesium 2.0 mg/dl (1.6-2.3) 09/10/23 03:38
08/29/23
09:28
Chi-P-Kbwhxktdrji Pept 2530
Physical Exam
Constitutional: No acute distress and Comfortable
EENT: Anicteric and Moist mucous membranes
Cardiovascular: Rhythm & rate is regular, Pedal edema is absent, JVD pressure is normal and Systolic murmur present
Respiratory: Respiratory effort normal, Lungs clear to auscul. and Wheeze Absent
GI: Soft and Non tender
Neuro/Psych: Alert and Motor deficits absent
Data Reviewed
-
Date of Service: September 10, 2023
Medical Decision Making: Reviewed Test Results and Tests Ordered
EKG: Tracing Personally Visualized and interpreted
Echo: Report Reviewed by me
Labs: Labs Reviewed by me
Old Records: Reviewed
Critical Care Time (in minutes): 31
--- NOTE | 2023-09-10 08:00 | PTCARENOTE ---
assumed care of pt from previous RN. walking rounds completed. pt is Hungarian speaking, language line used for communication and assessment. VSS. pt sinus tach w/ BBB. POX 95% on RA. +BS. voiding in urinal. no edema noted. doppler pulses, palpable
radial pulses. b/l groin sites CDI will continue to monitor.
[2023-09-10] MEDS: DIOVAN 320 MG PO (09:43)
[2023-09-10] MEDS: GLUCOTROL 5 MG PO ×2 (09:44→16:36)
[2023-09-10] MEDS: MAGNESIUM OXIDE 500 MG PO ×2 (09:44→21:04)
[2023-09-10] MEDS: CRESTOR 10 MG PO (09:44)
[2023-09-10] MEDS: LASIX 20 MG PO (09:45)
[2023-09-10] MEDS: ISMO 20 MG PO ×2 (09:45→21:04)
[2023-09-10] MEDS: ASPIR LOW (ENTERIC COATED) 81 MG PO (09:45)
[2023-09-10] MEDS: NORVASC 10 MG PO (09:45)
--- NOTE | 2023-09-10 09:51 | W.PN.ID1 ---
Date of Service
Date of Service: September 10, 2023
Today's Communication
Continue cefazolin.
Assessment / Plan
# Fever and leukocytosis - improving
-suspect reactive to POD#2 TAVR
- CXR neg, UA neg.
- COVID/Influenza negative.
-Follow Blood cultures pending.
- Continue empiric cefazolin pending cx data.
- Follow temps/wbc.
#Post-op RBBB/LBBB, pauses
- PPM delayed till 09/11.
#Additional Past Medical History:
Diabetes mellitus type 2
Hypertension
HLD
CAD status post stents
Aortic stenosis
CHF
PAD
Pulmonary nodule
Chief Complaint
-: Fever and Leukocytosis
Subjective / Review of Systems
Feels OK.
Vital Signs / Physical Exam
Vital Signs
Vital Signs
Temp Pulse Resp BP Pulse Ox
98.7 F 117 17 143/64 98
09/10/23 05:00 09/10/23 09:43 09/10/23 09:30 09/10/23 09:43 09/10/23 06:53
Physical Exam
Constitutional: No Acute Distress and Comfortable
Cardiovascular: S1/S2 and Other (tachycardic)
Pulmonary: Clear (anteriorly)
Gastrointestinal: Soft, Non Tender and Non Distended
Extremities: Negative Edema
Neurological: AO x 3
Objective Data
Lab Data
Lab Results
09/10/23 03:38
09/10/23 03:38
PT 14.0 Sec (11.4-14.6) 09/10/23 05:47
INR 1.09 09/10/23 05:47
APTT 33.3 Sec (23.4-35.0) 09/10/23 05:47
Estimated Creat Clear 98 ml/min 09/10/23 03:38
Total Bilirubin 0.7 mg/dl (0.2-1.3) 08/29/23 09:28
AST 31 U/L (17-59) 08/29/23 09:28
ALT 44 U/L (0-50) 08/29/23 09:28
Alkaline Phosphatase 47 U/L (38-126) 08/29/23 09:28
Most recent labs reviewed.
Micro Results:
09/09/23 12:16 Blood Culture - Pending
Blood/Venous
09/09/23 11:39 Blood Culture - Pending
Blood/Venous
09/09/23 05:56 Urine Culture - Pending
Urine
09/08/23 22:58 Influenza Types A & B (GISELLE) - Final
Nasal Swab Negative for Influenza A & B, NAAT
Negative results must be combined with clinical observations
and patient history.
Nucleic Acid Amplification test (NAAT)performed on the
[employer] platform.
08/29/23 09:11 MRSA Screen - Final
Nose No Methicillin Resistant Staphylococcus aureus isolated.
08/29/23 09:45 Urine Culture - Final
Urine Streptococcus agalactiae
09/09/23 CXR: No radiographic evidence for complication following TAVR. Mild cardiomegaly without evidence for acute pulmonary edema.
[2023-09-10] MEDS: NOVOLOG FLEXPEN-MODERATE RESISTANCE SC ×2 (12:55→17:08)
[2023-09-10 16:24] LABS: Glucose - Point of Care 283 mg/dl (70-99)
[2023-09-10] MEDS: NOVOLOG FLEXPEN-MODERATE RESISTANCE 5 UNITS SC (16:25)
--- NOTE | 2023-09-10 18:03 | PTCARENOTE ---
sat patient at edge of bed and attempted to stand and move around a little. pt got very light headed and dizzy, sat back down and got back into bed. remains drowsy but dizziness got better once laying down. remains with multiple rhythms, occasional
pauses noted this afternoon. continuing to monitor.
[2023-09-10 21:41] LABS: Glucose - Point of Care 227 mg/dl (70-99)
--- NOTE | 2023-09-10 23:55 | PTCARENOTE ---
Patient received in bed, AAOX3, ukranian speaking. Afib on monitor, pauses noted. Palpable pulses throughout, no edema noted. Lungs clear, pulse ox 98% on room air. Abdomen round with positive bowel sounds. Good appetite. #20 g in right hand
with Dobutamine gtt infusing as ordered. #20 g in left forearm flushed and patent. call francois within reach
[2023-09-11] VITALS (22 sets, daily range): BP systolic 98–124; BP diastolic 51–85; BMI 26.5
[2023-09-11 04:21] LABS: % Basophils 0.4 % (0-2); % Immature Granulocytes 0.4 % (0-0.5); % Lymphocytes 13.9 % (20.5-51.1); % Monocytes 13.9 % (1.7-9.3); % Neutrophils 70.4 % (42.2-75.2); Absolute Basophils 0.1 10^3/uL (0-0.2); Absolute Eosinophils 0.1 10^3/uL (0-0.7); Absolute Immature Granulocytes 0.1 10^3/uL (0-0.05); Absolute Lymphocytes 1.8 10^3/uL (1.2-3.4); Absolute Monocytes 1.8 10^3/uL (0.1-0.6); Absolute Neutrophils 8.9 10^3/uL (1.4-6.5); Hematocrit 39.5 % (39.0-52.0); Hemoglobin 12.7 g/dL (13.0-18.0); Mean Corp Hgb Conc. 32.2 g/dL (33.0-37.0); Mean Corpuscular Volume 77.6 fL (80.0-94.0); Mean Platelet Volume 10.8 fL (7.4-10.4); Nucleated Red Blood Cells % 0 % (-); Platelet Count 172 10^3/uL (130-400); Red Blood Cell Count 5.09 10^6/uL (4.70-6.10); Red Cell Dist. Width 14.4 % (11.5-14.5); White Blood Cell Count 12.7 10^3/uL (4.8-10.8)
--- NOTE | 2023-09-11 04:39 | W.PN.CT ---
Today's Communication / Plan
-
-No major issues overnight
-New postop LBBB/RBBB
-Postop Pauses, 4.5 sec longest. Currently on Dobutamine gtt @ 2.5 mcg/kg/min, Rhythm is currently NSR with PVC's @ 88 bpm, noted to be tachycardic at times
-Postop fever. Afebrile overnight, TM 98.9, WBC 12.7, down from 16.8 yesterday
-On Ancef per ID, blood cultures without growth thus far
-For PPM likely tomorrow, 09/11
-Postop Echo shows intact TAVR with PG/MG of 6/3 mmHg, no AI
-Cont. current meds (ASA, Brilinta, Diovan, Norvasc, Lasix, Ismo, Crestor, Glucotrol). Lopressor held d/t new LBBB
-Monitor hyponatremia, 133. Fluid restriction
-OOB into chair
-Monitor groins, currently C/D/I without significant hematoma
Assessment / Plan
-
- Symptomatic severe - s/p Left trans femoral TAVR with a 26 mm, nominal, Ramos TAVR valve on 09/08/23, pod #3
- Acute on chronic congestive heart failure with volume overload, LVEDP pre-TAVR was 30 mmHg- diuresed with 40 mg iv Lasix
- Intraop TTE: LVEF was 55% preop and postop without inotropic support, regional wma.The aortic valve was well seated without detectable PVL and mean gradient across the new valve was 3mmHg.
- CAD, Hx STEMI, s/p RCA stent 2011 and LAD and Circ stents 2017 - on ASA and Brilinta at home
- Severe peripheral vascular disease with claudication of the right lower extremity
- Hypertension
- Hyperlipidemia
- Diabetes type 2 (HgA1c 9.2)
- History of tobacco abuse
- Acute postop LBBB on 09/07 and RBBB on 09/08
- Acute postop tachycardia
- Acute postop nausea/vomiting/fever
- acute on chronic systolic heart failure (LVEDP 30mmHg)
- Acute postop hyponatremia, 133
Discussed patient care with: Cardiology, Nursing, Respiratory Therapy, Pharmacy and Care Team
Subjective
Procedure
- s/p Left trans femoral TAVR with a 26 mm, nominal, Ramos TAVR valve on 09/08/23
-
Date of Service: September 11, 2023
Pt offers no complaints
Objective Data
-
PT 14.0 Sec (11.4-14.6) 09/10/23 05:47
INR 1.09 09/10/23 05:47
APTT 33.3 Sec (23.4-35.0) 09/10/23 05:47
Vital Signs
Vital Signs
Temp Pulse Resp BP Pulse Ox
98.3 F 91 18 102/54 98
09/11/23 04:00 09/11/23 04:30 09/11/23 04:30 09/11/23 04:00 09/10/23 20:00
CT Intake/Output/Weight
09/10/23 09/10/23 09/11/23
06:59 18:59 06:59
Intake Total 53.1 / 293.1 167.2 / 167.2
Output Total 600 / 600 900 / 900
Balance -546.9 / -306.9 -732.8 / -732.8
SaO2: 98 (RA)
Physical Exam
-
General: Awake, Oriented and AOx3
Cardiovascular: Regular rate & rhythm, No Murmurs and No Gallop
Respiratory: Decreased Breath Sounds (at bases, otherwise clear)
Sternum: Stable
Incision: Clean, Dry, Intact and Dressing Intact
[2023-09-11 04:48] LABS: Blood Urea Nitrogen 34 mg/dl (9-20); Calcium 9.5 mg/dl (8.4-10.2); Carbon Dioxide 24 mmol/L (22-30); Chloride 99 mmol/L (98-107); Estimated Creatinine Clearance 53 ml/min; Glucose 183 mg/dl (70-99); Magnesium 2.4 mg/dl (1.6-2.3); Potassium 3.9 mmol/L (3.5-5.1); Sodium 133 mmol/L (135-145); eGFR > 60.00
[2023-09-11] MEDS: ANCEF 10 IV (05:26)
--- NOTE | 2023-09-11 06:10 | PTCARENOTE ---
Patient sleeping throughout night, repositioning self in bed, offers no complaints. Now in NSR with 80s, remains on room air. No other changes in assessment
[2023-09-11 08:36] LABS: Glucose - Point of Care 161 mg/dl (70-99)
[2023-09-11] MEDS: NOVOLOG FLEXPEN-MODERATE RESISTANCE 1 UNITS SC (08:41)
[2023-09-11] MEDS: ISMO 20 MG PO ×2 (08:50→20:10)
[2023-09-11] MEDS: CRESTOR 10 MG PO (08:50)
[2023-09-11] MEDS: MAGNESIUM OXIDE 500 MG PO ×2 (08:50→20:10)
[2023-09-11] MEDS: GLUCOTROL 5 MG PO ×2 (08:50→17:09)
[2023-09-11] MEDS: ASPIR LOW (ENTERIC COATED) 81 MG PO (08:50)
[2023-09-11] MEDS: KCL 20 MEQ PO (08:55)
[2023-09-11] MEDS: LASIX PO (08:55)
[2023-09-11] MEDS: DIOVAN PO (08:55)
--- NOTE | 2023-09-11 09:38 | W.PN.ID1 ---
Date of Service
Date of Service: September 11, 2023
Today's Communication
DC abx.
From ID standpoint, clear for PPM placement.
ID will sign off.
Assessment / Plan
# s/p TAVR 09/08/23
# Post-op fever resolved
# Post-op leukocytosis - improving
- CXR neg, UA neg.
- COVID/Influenza negative.
- Blood cultures negative to date
- Discontinue empiric cefazolin.
#Post-op RBBB/LBBB, pauses
- PPM delayed till 09/11.
- From ID standpoint, clear for PPM placement tomorrow.
ID will sign off. Call prn.
#Additional Past Medical History:
Diabetes mellitus type 2
Hypertension
HLD
CAD status post stents
Aortic stenosis
CHF
PAD
Pulmonary nodule
Chief Complaint
-: Fever and Leukocytosis
Subjective / Review of Systems
No complaints.
Vital Signs / Physical Exam
Vital Signs
Vital Signs
Temp Pulse Resp BP Pulse Ox
98.4 F 109 23 99/68 95
09/11/23 08:00 09/11/23 09:00 09/11/23 09:00 09/11/23 08:34 09/11/23 09:16
Physical Exam
Constitutional: No Acute Distress
Cardiovascular: Regular Rate
Extremities: Negative Edema or Erythema
Neurological: AO x 3
Objective Data
Lab Data
Lab Results
09/11/23 04:11
PT 14.0 Sec (11.4-14.6) 09/10/23 05:47
INR 1.09 09/10/23 05:47
APTT 33.3 Sec (23.4-35.0) 09/10/23 05:47
Estimated Creat Clear 53 ml/min 09/11/23 04:11
Total Bilirubin 0.7 mg/dl (0.2-1.3) 08/29/23 09:28
AST 31 U/L (17-59) 08/29/23 09:28
ALT 44 U/L (0-50) 08/29/23 09:28
Alkaline Phosphatase 47 U/L (38-126) 08/29/23 09:28
Most recent labs reviewed.
Micro Results:
09/09/23 12:16 Blood Culture - Preliminary
Blood/Venous No Growth in 24 hours- Final report to follow
09/09/23 11:39 Blood Culture - Preliminary
Blood/Venous No Growth in 24 hours- Final report to follow
09/09/23 05:56 Urine Culture - Final
Urine NO GROWTH
09/08/23 22:58 Influenza Types A & B (GISELLE) - Final
Nasal Swab Negative for Influenza A & B, NAAT
Negative results must be combined with clinical observations
and patient history.
Nucleic Acid Amplification test (NAAT)performed on the
[employer] platform.
08/29/23 09:11 MRSA Screen - Final
Nose No Methicillin Resistant Staphylococcus aureus isolated.
08/29/23 09:45 Urine Culture - Final
Urine Streptococcus agalactiae
09/09/23 CXR: No radiographic evidence for complication following TAVR. Mild cardiomegaly without evidence for acute pulmonary edema.
--- NOTE | 2023-09-11 10:17 | PTCARENOTE ---
Pt received in bed @ 0700. AOAx3. Micronesian speaking. at bedside. Denying pain. Sinus tach with 1st degree AV block and a BBBC on life skills educator. SaO2 94-98% on room air. Diminished bases. Pt removed (R) hand IV site. New #22 placed in (L)
wrist with Dobutamine gtt infusing @ 2.5 mcg mcg/kg/min. (L) groin site with old drainage. (R) groin site C/D/I. No void observed overnight. Pt bladder scanned for 329ml.
[2023-09-11] MEDS: NORVASC PO (10:44)
[2023-09-11 11:58] LABS: Glucose - Point of Care 272 mg/dl (70-99)
[2023-09-11] MEDS: NOVOLOG FLEXPEN-MODERATE RESISTANCE 5 UNITS SC (12:00)
[2023-09-11] MEDS: DOBUTREX 500 MG 250 IV (12:00)
--- NOTE | 2023-09-11 13:05 | PTCARENOTE ---
Pt reassessed. CHG cloth bath performed and linens changed. Pt voiding jake into urinal. Dobutamine gtt continues @ 2.5 mcg/kg/min. HR to 130s while patient eating lunch. 10 second pause observed followed by a heart block with HR regaining to 100s.
Pt denied symptoms when nurses entered room. BP 120/70. Pacer pads in place on patient.
[2023-09-11 15:01] LABS: Blood Urea Nitrogen 40 mg/dl (9-20); Calcium 9.8 mg/dl (8.4-10.2); Carbon Dioxide 26 mmol/L (22-30); Chloride 96 mmol/L (98-107); Estimated Creatinine Clearance 77 ml/min; Glucose 327 mg/dl (70-99); Potassium 4.5 mmol/L (3.5-5.1); Sodium 133 mmol/L (135-145); eGFR > 60.00
[2023-09-11 17:09] LABS: Glucose - Point of Care 240 mg/dl (70-99)
[2023-09-11] MEDS: NOVOLOG FLEXPEN-MODERATE RESISTANCE 3 UNITS SC (17:09)
--- NOTE | 2023-09-11 18:26 | PTCARENOTE ---
Pt reassessed. No further pauses observed. Dobutamine gtt continues @ 2.5 mcg/kg/min.
--- NOTE | 2023-09-11 20:00 | PTCARENOTE ---
assumed care of from previous RN. pt Kyrgyz speaking, language line used for assessment. pt A&Ox4, resting in bed at time of assessment. pt Sinus tach w/ 1st degree AVB, RBBB on tele-monitor, HR low 100s. no edema noted, palpable peripheral
pulses. POX 96% on RA. pt voiding in urinal. cath sites CDI. L groin w/ small, old drainage present. PIV intact. dobutamine infusing. plan of care reviewed, pt in agreement. pt NPO at midnight for PPM in AM. call francois within reach. see worklist for
complete nursing assessment, interventions, VS, and I&Os.
[2023-09-11 22:17] LABS: Glucose - Point of Care 171 mg/dl (70-99)
[2023-09-12] VITALS (15 sets, daily range): BP systolic 86–134; BP diastolic 63–84; BMI 27.0
--- NOTE | 2023-09-12 00:28 | PTCARENOTE ---
pt reassessed. VSS. POX 93-94% on RA. pt reminded NPO until after PPM procedure. pt in agreement.
--- NOTE | 2023-09-12 04:30 | PTCARENOTE ---
VSS. POX 98% on 2 L NC. sinus tach on tele-monitor. HR low 100s. AM labs collected and sent. pt NPO since 0000.
[2023-09-12 04:38] LABS: % Basophils 0.6 % (0-2); % Eosinophils 1.8 % (0-6); % Immature Granulocytes 0.4 % (0-0.5); % Lymphocytes 20.7 % (20.5-51.1); % Monocytes 15.4 % (1.7-9.3); % Neutrophils 61.1 % (42.2-75.2); Absolute Basophils 0.1 10^3/uL (0-0.2); Absolute Eosinophils 0.2 10^3/uL (0-0.7); Absolute Monocytes 1.5 10^3/uL (0.1-0.6); Hematocrit 39.4 % (39.0-52.0); Mean Corpuscular Hgb 25.1 pg (27.0-31.0); Mean Corpuscular Volume 76.1 fL (80.0-94.0); Mean Platelet Volume 10.7 fL (7.4-10.4); Nucleated Red Blood Cells % 0 % (-); Platelet Count 239 10^3/uL (130-400); Red Blood Cell Count 5.18 10^6/uL (4.70-6.10); Red Cell Dist. Width 14.8 % (11.5-14.5); White Blood Cell Count 9.9 10^3/uL (4.8-10.8)
[2023-09-12 05:11] LABS: Blood Urea Nitrogen 30 mg/dl (9-20); Calcium 9.4 mg/dl (8.4-10.2); Carbon Dioxide 27 mmol/L (22-30); Chloride 99 mmol/L (98-107); Estimated Creatinine Clearance 115 ml/min; Glucose 113 mg/dl (70-99); Magnesium 2.4 mg/dl (1.6-2.3); Potassium 4.3 mmol/L (3.5-5.1); Sodium 134 mmol/L (135-145); eGFR > 60.00
--- NOTE | 2023-09-12 05:11 | W.PN.CT ---
Today's Communication / Plan
-
-No major issues overnight
-New postop LBBB/RBBB
-Postop Pauses, 4.5 sec, and 10 sec yesterday afternoon. On Dobutamine gtt @ 2.5 mcg/kg/min, Rhythm is currently sinus tachycardia with PVC's @ 105 bpm
-Postop fever. Afebrile overnight, TM 98.8, WBC 9.9, down from 12.7 yesterday
-Ancef completed yesterday per ID, blood cultures without growth thus far. Okay for PPM per ID
-NPO, for PPM today 09/11
-Postop Echo shows intact TAVR with PG/MG of 6/3 mmHg, no AI
-Cont. current meds (ASA, Brilinta-currently on hold, Norvasc, Lasix, Ismo, Crestor, Glucotrol). BB on hold, should be able to resume post PPM placement
-Metformin and Diovan are currently on hold, creatinine was rising yesterday
-Monitor hyponatremia, 134. Fluid restriction
-OOB into chair
-Monitor groins, currently C/D/I without significant hematoma
Assessment / Plan
-
- Symptomatic severe - s/p Left trans femoral TAVR with a 26 mm, nominal, Ramos TAVR valve on 09/08/23, pod #4
- Acute on chronic congestive heart failure with volume overload, LVEDP pre-TAVR was 30 mmHg- diuresed with 40 mg iv Lasix
- Intraop TTE: LVEF was 55% preop and postop without inotropic support, regional wma.The aortic valve was well seated without detectable PVL and mean gradient across the new valve was 3mmHg.
- CAD, Hx STEMI, s/p RCA stent 2011 and LAD and Circ stents 2017 - on ASA and Brilinta at home
- Severe peripheral vascular disease with claudication of the right lower extremity
- Hypertension
- Hyperlipidemia
- Diabetes type 2 (HgA1c 9.2)
- History of tobacco abuse
- Acute postop LBBB on 09/07 and RBBB on 09/08
- Acute postop tachycardia
- Acute postop nausea/vomiting/fever
- acute on chronic systolic heart failure (LVEDP 30mmHg)
- Acute postop hyponatremia, 133
Discussed patient care with: Cardiology, Nursing, Respiratory Therapy, Pharmacy and Care Team
Subjective
Procedure
- s/p Left trans femoral TAVR with a 26 mm, nominal, Ramos TAVR valve on 09/08/23
-
Date of Service: September 12, 2023
Pt offers no complaints
Objective Data
-
Lab Results
09/12/23 04:28
PT 14.0 Sec (11.4-14.6) 09/10/23 05:47
INR 1.09 09/10/23 05:47
APTT 33.3 Sec (23.4-35.0) 09/10/23 05:47
Vital Signs
Vital Signs
Temp Pulse Resp BP Pulse Ox
98.7 F 109 18 99/70 93
09/12/23 00:00 09/12/23 00:00 09/12/23 00:00 09/12/23 00:00 09/12/23 00:00
CT Intake/Output/Weight
09/11/23 09/11/23 09/12/23
06:59 18:59 06:59
Intake Total 70.8 / 238.0 802.6 / 832.1 29.5 / 832.1
Output Total 1200 / 1600 400 / 1600
Balance 70.8 / -662.0 -397.4 / -767.9 -370.5 / -767.9
SaO2: 93 (RA)
Physical Exam
-
General: Awake, Oriented and AOx3
Cardiovascular: Regular rate & rhythm (sinus tachycardia on dobutamine gtt @ 2.5 mcg/kg/min ), No Murmurs, No Rub and No Gallop
Respiratory: Decreased Breath Sounds
Sternum: Stable
Incision: Clean, Dry, Intact and Dressing Intact
Extremities: No Edema
Data Reviewed
-
Lab Results: Results Reviewed
Medications: Active Meds Reviewed
Chest X-Ray: Report Reviewed and Image Reviewed
ECG: Report Reviewed and Image Reviewed
--- NOTE | 2023-09-12 07:00 | PTCARENOTE ---
Bedside walking rounds report received. Patient seen on rounds resting in bed: complete bedrest due to need for PPM today with various forms of av blocks and arrhythmias observed over last few dyas with [address] Jose Sterling here and
updated: utilized language line to translate [place] to Tu[place]uan to obtain informed consent for PPM today. New orders received. See flowrecord for remaining assessments.
[2023-09-12] MEDS: NOVOLOG FLEXPEN-MODERATE RESISTANCE SC (09:11)
[2023-09-12] MEDS: CRESTOR 10 MG PO (09:12)
[2023-09-12] MEDS: ASPIR LOW (ENTERIC COATED) 81 MG PO (09:12)
[2023-09-12] MEDS: MAGNESIUM OXIDE 500 MG PO ×2 (09:12→20:11)
[2023-09-12] MEDS: NORVASC 10 MG PO (09:12)
[2023-09-12] MEDS: ISMO 20 MG PO ×2 (09:12→20:11)
[2023-09-12 09:13] LABS: Glucose - Point of Care 156 mg/dl (70-99)
[2023-09-12] MEDS: GLUCOTROL PO (09:13)
--- NOTE | 2023-09-12 10:15 | PTCARENOTE ---
Patient report given via phone to EP lab crime lab analyst RN and patient taken for procedure on monitor and dobutrex infusing at prescribed rate. Family aware that patient is going to room 2244 IVU post PPM.
--- NOTE | 2023-09-12 12:00 | PTCARENOTE ---
Patient report called to IVU DARIEN White.
--- NOTE | 2023-09-12 12:08 | W.PN.CD ---
Today's Communication / Plan
-
- PPM today
- Off dobutamine post implant.
- resume Metoprolol 100 mg BID post implant.
Impression / Plan
-
:
S/P 26mm Ramya S3 TAVR- 09/07. No acute complications and good hemodynamic result. Spiked fever to 102.9 09/08 AM.
WBC 19.9k now down to 12.7. BC x 2 drawn. Urine cx sent.
ID is following and treating empirically with antibiotics.
ECHO 09/08 shows gradient 3 mm Hg and no AI
Fever: ID to decide about ABX while blood cultures percolate
Severe conduction system disease
-alternating BBB -suggestive of infrahisian block
- had LBBB and then some RBBB.
-Dobutamine started and conducting normally 1:1 now.
PPM today
Outpt supervisor of research Rafael Carey
Physical Exam
Vital Signs/Labs
Vital Signs
Temp Pulse Resp BP Pulse Ox
97.9 F 113 21 121/84 98
09/12/23 08:53 09/12/23 10:30 09/12/23 10:30 09/12/23 10:00 09/12/23 09:30
09/11/23 09/12/23 09/13/23
06:59 06:59 06:59
Actual Weight 76.8 kg 78 kg
09/12/23 04:28
09/12/23 04:28
PT 14.0 Sec (11.4-14.6) 09/10/23 05:47
INR 1.09 09/10/23 05:47
APTT 33.3 Sec (23.4-35.0) 09/10/23 05:47
Magnesium 2.4 mg/dl (1.6-2.3) H 09/12/23 04:28
08/29/23
09:28
Voz-T-Iypsrrzxycr Pept 2530
Physical Exam
Constitutional: No acute distress and Comfortable
EENT: Anicteric and Moist mucous membranes
Cardiovascular: Rhythm & rate is regular, Pedal edema is absent and JVD pressure is normal
Respiratory: Respiratory effort normal, Lungs clear to auscul. and Wheeze Absent
GI: Soft, Flat and Non tender
Neuro/Psych: Alert, Oriented and AO x 3
Data Reviewed
-
Date of Service: September 12, 2023
Medical Decision Making: Reviewed Test Results, Independent Historian Assessment, Test Interpretation and Review of Case with other Provider
EKG: Tracing Personally Visualized and interpreted
Echo: Report Reviewed by me
Labs: Labs Reviewed by me
Old Records: Reviewed
--- NOTE | 2023-09-12 12:10 | ITS.CL.PACE ---
Quality Systems Manager - Pacemaker Implant
Pacemaker Implant
Procedure Report:
Conduction system - Left Bundle Branch pacing dual chamber Permanent Pacemaker Placement:
Indications:
63 yrs old man with severe s/p S/P 26mm Ramya S3 TAVR on 09/07 and was noted to have alternative bundle branch block and developed fever s/p treated with antibiotics and had intermittent heart block and pauses is recommended a pacemaker
placement.
Date of the Procedure: 09/12/23
Pre-Operative Diagnosis: Alternative bundle branch block
Post-Operative Diagnosis: Alternative bundle branch block
Procedure Performed: LEFT BUNDLE BRANCH PACING WITH DUAL CHAMBER PERMANENT PACEMAKER IMPLANTATION.
Performing Physician:
Swetha Albrecht MD
Anesthesia:
See anesthesia records
Detailed Description of the Procedure:
The patient was identified using hospital identification and informed consent obtained for the procedure. The risks were explained to the patient and the family including, but not limited to: Bleeding, infection, arrhythmia, stroke,
vascular/cardiac/lung puncture, surgery, pacemaker dependency/device malfunction. All questions were answered.
Anesthesia service provided sedation as reported separately. Antibiotics administered IV for risk of bacterial colonization. After obtaining informed and written consent, the patient was brought to the electrophysiology laboratory.
The initial rhythm was sinus tachycardia with dobutamine gtt.
A timeout was performed immediately before the procedure. The left chest was prepped from the nipple to the angle of the jaw with chlorhexidine, and draped following sterile technique in usual routine.�
A surgical pause and time out was performed immediately prior to the procedure with review of her medical history, recent labs, allergies and medications with site of procedure identified and consent noted in the chart. Antibiotics pre operatively
given. All team members concurred.
The procedure site was meticulously prepared with surgical scrub and allowed to dry with no pooling. Sterile draping was applied to cover the procedure site. The image intensifier was draped with sterile bag and positioned over the patient.
The left infraclavicular region was prepped and draped in the usual sterile fashion. Local anesthesia was administered subcutaneously using 1% lidocaine / Bupivacaine. The left cephalic vein cutdown was done and guide wires were advanced to the
inferior vena cava (IVC) under flouro guidance.
A subcutaneous pocket was created with blunt dissection and use of electrocautery. Hemostasis was excellent.
First an active RV lead was placed in the RV apex and used as a pacing lead while conduction system can be placed.
Attention then was turned to the left bundle branch pacing lead. The guide wire was advanced to the RA and was advanced to the RV. The preformed curved long hemostatic peel away HIS sheath was advanced into the RV cavity. A left bundle pacing wire
was advanced into the sheath to the tip with ventricular signals noted with unipolar manner. The sheath with the pacing lead was moved deeper into the RV cavity from the HIS location on the septum at a more inferior and distal to the HIS signals.
Once adequate signals were noted on the electrograms of the pacing lead in the sheath with W pattern signals on the RV septum, the lead was advanced and clockwise turns were done under fluoroscopic guidance. The septum was engaged and the lead was
paced intermittently after every 2-3 turns. The Impedance of the lead was measured that remained stable around 1000 Ohm and the lead was advanced into the septum. The ventricular capture was monitored throughout and the captures gradually changed
from RV pacing to non-selective pacing to LBB pacing with R wave on V1.
With RBBB pattern noted on the pacing lead, it was decided to accept the location as optimal location. The long guiding sheath was cut and removed from the RV without change in lead position, impedance, sensing, or capture. The lead was sutured to
the underlying pectoralis fascia with 0-silk stitches.
The RV apical lead was then removed and was anchored in the right atrial appendage with deploying active fixation. There was excellent sensing, pacing, and impedance from the leads, with no diaphragmatic stimulation at 10 V output.�Bovie cautery,
antibiotics, and fluoroscopy were used.
The leads were attached to the pulse generator in standard configuration with acceptable sensing and threshold parameters. The pocket was irrigated with antibiotic solution; the pocket was inspected with no active bleeding noted. The device and the
leads were placed in the pocket.
Deep subcutaneous tissues were closed with 3 layers of 2-0V loc sutures; and the dermis was reopposed using a running 4-0 VLoc subcuticular suture. Sponge counts / sharp counts were appropriate.
Procedure End:
The procedure was tolerated well. Aquacel bandaged was applied. A pressure dressing was applied.
Estimated Blood loss:
5 cc
Specimens Removed:
No cultures and no specimens were obtained. No intraoperative pathology was identified.
Urine output:
None
Packs / Drains/ Tubes:
None
Instrument / Sponge Count Correct:
Yes
Flouro time:
4.1min / 10 mGy
Complications of the Procedure:
None
Condition of Patient at Time of Transfer:
Hemodynamically stable with no neurological or vascular compromise.
Device information:�
Generator: [employer]; Model: W1DR01; Serial # [id number]�
����������� Atrial Lead: [employer]; Model: 5076-52; Serial # [id number]�
Measured data in the right atrium was sensing of 1.6 mV, impedance of 703 ohms and threshold of 0.5 V at 0.4ms�
����������� LBB pacing lead: [employer]tronic; Model: 3830-69; Serial # [id number]
����������������������� Measured data on the RV lead was sensing of 7mV, impedance of 1007 ohms and threshold of 0.75 V at 0.4ms
PROGRAMMING PARAMETERS:�
Sammy parameter settings were AAIR <=>DDDR 60-130 �
����������� Paced AV interval: 180ms
����������� Sensed AV interval: 150 ms.
����������� Rate Adaptive A-V Interval: off
����������� Mode switch ON
�
Summary:
Successful implantation of MRI compatible LBB pacing dual chamber pacemaker.
Results/Recommendations:
-Please follow up CXR�
1. Please provide patient with adequate pain control�
Instructions to be given to patient:�
- Please follow up with [facility] at [address] [place] [address] ([phone]) to get your wound checked in 2 weeks of your discharge. Then follow with
- Do not wet incision site until after it is evaluated at cardiology clinic. No baths or showers until then. Sponge baths / showers are OK but dab dry the dressing after it is wet.�
- Allow 'steri strips' to fall off on their own�
- Do not lift left elbow above shoulder, particularly with sudden jerking movements, for 1 month�
- Do not lift anything weighing more than 5 pounds with the left arm for 1 month�
- If you notice any fevers, shortness of breath, lightheadedness, chest pain, or worsening swelling in the wound site, please contact the arrhythmia clinic, contact your card player, or present to the hospital for evaluation.�
Swetha Albrecht MD
Electrophysiology
--- NOTE | 2023-09-12 12:42 | PTCARENOTE ---
Rec'd Pt post PPM placement, A,A+OX3, speaks Ukranian, uses google translate. He denies pain or lightheadedness. L CW with [facility] D+I, L arm immobilizer in place.
[2023-09-12 14:20] LABS: Glucose - Point of Care 339 mg/dl (70-99)
[2023-09-12] MEDS: NOVOLOG FLEXPEN-MODERATE RESISTANCE 7 UNITS SC (14:20)
[2023-09-12] MEDS: DULCOLAX 10 MG PO (14:59)
--- NOTE | 2023-09-12 16:48 | CM ---
spoke with pt and daughter over phone to translate. he is aware he has immediate VN services set up to see him after dc.
[2023-09-12] MEDS: ANCEF 5 IV (17:08)
[2023-09-12 17:48] LABS: Glucose - Point of Care 356 mg/dl (70-99)
[2023-09-12] MEDS: GLUCOTROL 5 MG PO (17:49)
[2023-09-12] MEDS: GLUCOPHAGE 1000 MG PO (17:49)
[2023-09-12] MEDS: NOVOLOG FLEXPEN-MODERATE RESISTANCE 9 UNITS SC (17:50)
[2023-09-12 21:39] LABS: Glucose - Point of Care 360 mg/dl (70-99)
[2023-09-12] MEDS: NOVOLIN R 0.100000000000000006 UNITS SC (23:50)
--- NOTE | 2023-09-13 01:01 | PTCARENOTE ---
Pt received at start of shift, HR V-paced 80s-100s. Aquacel dressing over L chest incision CDI. L arm in immobilizer. B/l groin sites CDI (old drainage on L), slight ecchymosis noted at sites. Pt updated on plan of care, pt states no questions at
this time. Pt denies CP, SOB, or lightheadedness/dizziness at this time. Informed to notify RN if any changes, call francois within reach.
Evening blood glucose 360. [facility] Ed Edwin notified, additional 10 units regular insulin ordered and administered. Will recheck blood glucose in 2 hours.
[2023-09-13 01:55] VITALS: BP 126/87
[2023-09-13 02:07] LABS: Glucose - Point of Care 213 mg/dl (70-99)
[2023-09-13] MEDS: ANCEF 5 IV (02:15)
[2023-09-13] MEDS: TYLENOL 650 MG PO (02:16)
[2023-09-13 02:38] LABS: % Basophils 0.1 % (0-2); % Immature Granulocytes 0.5 % (0-0.5); % Lymphocytes 11.4 % (20.5-51.1); % Monocytes 7.8 % (1.7-9.3); % Neutrophils 80.2 % (42.2-75.2); Absolute Immature Granulocytes 0.1 10^3/uL (0-0.05); Absolute Lymphocytes 1.2 10^3/uL (1.2-3.4); Absolute Monocytes 0.8 10^3/uL (0.1-0.6); Absolute Neutrophils 8.2 10^3/uL (1.4-6.5); Hematocrit 40.9 % (39.0-52.0); Hemoglobin 13.7 g/dL (13.0-18.0); Mean Corp Hgb Conc. 33.5 g/dL (33.0-37.0); Mean Corpuscular Hgb 25.2 pg (27.0-31.0); Mean Corpuscular Volume 75.3 fL (80.0-94.0); Mean Platelet Volume 10.1 fL (7.4-10.4); Nucleated Red Blood Cells % 0 % (-); Platelet Count 270 10^3/uL (130-400); Red Blood Cell Count 5.43 10^6/uL (4.70-6.10); Red Cell Dist. Width 14.7 % (11.5-14.5); White Blood Cell Count 10.3 10^3/uL (4.8-10.8)
[2023-09-13 03:01] LABS: Blood Urea Nitrogen 35 mg/dl (9-20); Calcium 10.1 mg/dl (8.4-10.2); Carbon Dioxide 27 mmol/L (22-30); Chloride 96 mmol/L (98-107); Estimated Creatinine Clearance 98 ml/min; Glucose 228 mg/dl (70-99); Magnesium 2.8 mg/dl (1.6-2.3); Potassium 5.3 mmol/L (3.5-5.1); Sodium 134 mmol/L (135-145); eGFR > 60.00
--- NOTE | 2023-09-13 06:43 | W.PN.CT ---
Today's Communication / Plan
-
-No major issues overnight
-New postop LBBB/RBBB S/p dual chamber PPM. Site C/D/I without signs of infection
-Will resume Plavix, BB
-Postop Echo showed intact TAVR with PG/MG of 6/3 mmHg, no AI
-Cont. current meds (ASA, Brilinta-currently on hold, Norvasc, Lasix, Ismo, Crestor, Glucotrol)
-Monitor hyponatremia, 134. Fluid restriction
-OOB into chair
-Monitor groins, currently C/D/I without significant hematoma
Assessment / Plan
-
- Symptomatic severe - s/p Left trans femoral TAVR with a 26 mm, nominal, Ramos TAVR valve on 09/08/23, pod #5
- Acute on chronic congestive heart failure with volume overload, LVEDP pre-TAVR was 30 mmHg- diuresed with 40 mg iv Lasix
- Intraop TTE: LVEF was 55% preop and postop without inotropic support, regional wma.The aortic valve was well seated without detectable PVL and mean gradient across the new valve was 3mmHg.
- CAD, Hx STEMI, s/p RCA stent 2011 and LAD and Circ stents 2017 - on ASA and Brilinta at home
- Severe peripheral vascular disease with claudication of the right lower extremity
- Hypertension
- Hyperlipidemia
- Diabetes type 2 (HgA1c 9.2)
- History of tobacco abuse
- Acute postop LBBB on 09/07 and RBBB on 09/08
- Acute postop tachycardia
- Acute postop nausea/vomiting/fever
- acute on chronic systolic heart failure (LVEDP 30mmHg)
- Acute postop hyponatremia, 133
Discussed patient care with: Cardiology, Nursing, Respiratory Therapy, Pharmacy and Care Team
Subjective
Procedure
- s/p Left trans femoral TAVR with a 26 mm, nominal, Ramos TAVR valve on 09/08/23
-
Date of Service: September 13, 2023
Pt c/o constipation yesterday, got Dulcolax, feel well
Objective Data
-
Lab Results
09/13/23 02:10
09/13/23 02:10
PT 14.0 Sec (11.4-14.6) 09/10/23 05:47
INR 1.09 09/10/23 05:47
APTT 33.3 Sec (23.4-35.0) 09/10/23 05:47
Vital Signs
Vital Signs
Temp Pulse Resp BP Pulse Ox
97.5 F 92 18 126/87 97
09/13/23 01:55 09/13/23 02:00 09/13/23 01:55 09/13/23 01:55 09/13/23 01:55
CT Intake/Output/Weight
09/12/23 09/12/23 09/13/23
06:59 18:59 06:59
Intake Total 53.1 / 855.7 108.8 / 108.8
Output Total 400 / 1600 650 / 650
Balance -346.9 / -744.3 -541.2 / -541.2
SaO2: 97 (RA)
Physical Exam
-
General: Awake, Oriented and AOx3
Cardiovascular: Regular rate & rhythm, No Murmurs, No Rub and No Gallop
Respiratory: Clear
Sternum: Stable
Incision: Clean, Dry, Intact and Dressing Intact
Extremities: No Edema
Data Reviewed
-
Lab Results: Results Reviewed
Medications: Active Meds Reviewed
Chest X-Ray: Report Reviewed and Image Reviewed
ECG: Report Reviewed and Image Reviewed
[2023-09-13 06:46] VITALS: BP 113/74
[2023-09-13 06:49] LABS: Glucose - Point of Care 164 mg/dl (70-99)
--- NOTE | 2023-09-13 07:36 | W.DCSUMMARY ---
Discharge Summary
Discharge Data
Date of Admission: 09/08/23
Date of Discharge: 09/13/23
-
Pending Results: No
Hospital Course
Primary care physician: Khris Queen
Outpatient hand ornament maker: Rafael Carey
Inpatient consultants: [facility] cardiology, ID- Dr. Moran
Procedures:
1. 09/08/23 Left Transfemoral Transcatheter aortic valve replacement with 26mm Ramos S3 by Drs. Martin Lion & Tyrell Du
2. 09/12/23 Dual Chamber permanent pacemaker implantation by Dr. Swetha Albrecht
Primary Diagnosis:
1. Severe aortic stenosis
2. Postop alternating bundle branch block with pauses >5 seconds x2
3. acute on chronic heart failure with preserved ejection fraction
Secondary Diagnoses:
1. Coronary artery disease s/p stents to RCA, LAD & LCx 2017
2. history of inferior wall myocardial infarction 2022
3. Hypertension
4. type 2 diabetes mellitus, on oral therapy
5. peripheral vascular disease
HPI: Pt is a 63y/oM with PMH CAD/PA with prior stents and most recently anterior PA with intervention to the LAD 03/2023. He was referred for TAVR for his severe .
Hospital course: Patient was electively admitted on 09/08/2023 for transfemoral TAVR. This was completed under conscious sedation without complications, sheaths removed in recovery room. LVEDP elevated at 30mmHg, pt was given IV lasix postop. postop
EKG with new LBBB, home beta yenifer held. Overnight into postop day 1 patient had a Tmax of 102.9, morning white blood cell count was 19.9 blood and urinalysis cultures were sent and ID was consulted for comment. Patient was observed without
antibiotics and did not have further infectious signs or symptoms. Later in the morning pt had a 5 second pause and became temporarily unresponsive. Pt was started on dobutamine gtt & transferred to CVICU. Pt planned for PPM per EP, but awaiting ID
clearance. Pt remained afebrile with decreasing white count through the weekend. on POD#3 patient had another 10 second pause with brief LOC. dobutamine continued. On postop day #4 patient went for permanent pacemaker placement with Dr. Albrecht
without complications. On POD#5 patient remains stable, beta yenifer & brilinta have been resumed and he is discharged to home.
Home medication changes: Valsartan held at time of discharge due to relative hypotension, resume as BP allows.
Discharge Plan
-
Patient Disposition: Home (Routine Discharge)
Discharge Diagnosis/Procedures: TF-TAVR (09/07/), Pacemaker implant (09/12/23)
Condition: Good
Diet: Low Cholesterol, 2 Gram Sodium and Diabetic, Carb Controlled
Activity: As tolerated
Driving Restrictions: No driving for 1 week
Bathing Restrictions: OK to Shower
Others Tests: 30 Day Follow Up Echocardiogram: 10/11/2023 at 1:[address] Carey's office
Other Services: Cardiac Rehab
Wound Care: Please do not apply lotions, creams or powders to groin areas. Please monitor for increased pain, swelling, redness or drainage. Please call your doctor if any occur.
Specialty Instructions: Weigh Daily- Call MD for wt gain/loss 3 lbs overnight/5 lbs in 1 week
Activity Restrictions/Additional Instructions:
Please call to make appointments for Phase II Cardiac Rehab:
[facility]
[address] [place] [id number]
[phone]
Stand Alone Forms: DC Inst - Implanted Device
Referrals:
Immediate, visiting nurse [Other] (FAX- [phone])
Genesis Zurita NP [Specified Professional Personl] - 09/19/23 2:00 pm (Post device incision check appointment)
Khris Queen CRNP [Family Provider] -
Rafael Carey MD [Active] - 10/13/23 12:20 pm
Additional Discharge Medication Instructions: HOLD valsartan at this time until resumed by your doctor (BP low)
Prescriptions:
New
acetaminophen 325 mg Tablet
650 mg PO Q4HPRN PRN (Reason: ESCOBAR, mild pain, or fever >101F) Qty: 0 0RF
Continued
isosorbide mononitrate 20 mg Tablet
20 mg PO BID
aspirin 81 mg Tablet,Delayed Release (Dr/Ec)
81 mg PO DAILY
rosuvastatin 10 mg Tablet
10 mg PO DAILY
metoprolol tartrate 100 mg Tablet
100 mg PO BID
amlodipine 10 mg Tablet
10 mg PO DAILY
glipizide 5 mg Tablet
5 mg PO BID
furosemide 20 mg Tablet
20 mg PO DAILY
Brilinta 90 mg Tablet
90 mg BID
metformin 1,000 mg Tablet
1,000 mg PO BID Qty: 60 1RF
Rx Instructions:
resume 09/09
Jardiance 25 mg Tablet
25 mg PO DAILY
Discontinued
valsartan 320 mg Tablet
320 mg PO DAILY
Discharge Orders:
Discharge Patient (As Directed); Ordered 09/13/23
Ordered By: Renetta Mckeon
Care Plan Goals
Care Plan Goals:
Problem: Readiness for enhanced knowledge related to diagnosis and treatment plan
Goal: Understand your diagnosis and treatment plan needs, including medications if applicable.
Instructions: Know your diagnosis, underlying causes and treatment plan options, including medications if applicable. Consult with your health care team to learn about your diagnosis and treatment plan, including medications if applicable.
Discharge Date and Time
Print Language: KINYARWANDA
[2023-09-13] MEDS: NORVASC 10 MG PO (07:56)
[2023-09-13] MEDS: LASIX 20 MG PO (07:56)
[2023-09-13] MEDS: CRESTOR 10 MG PO (07:56)
[2023-09-13] MEDS: ISMO 20 MG PO (07:56)
[2023-09-13] MEDS: GLUCOPHAGE 1000 MG PO (07:56)
[2023-09-13] MEDS: MAGNESIUM OXIDE 500 MG PO (07:56)
[2023-09-13] MEDS: GLUCOTROL 5 MG PO (07:56)
[2023-09-13] MEDS: ASPIR LOW (ENTERIC COATED) 81 MG PO (07:57)
[2023-09-13] MEDS: BRILINTA 90 MG PO (08:00)
[2023-09-13] MEDS: LOPRESSOR 100 MG PO (08:00)
[2023-09-13] MEDS: NOVOLOG FLEXPEN-MODERATE RESISTANCE 1 UNITS SC (08:24)
[2023-09-13 08:42] VITALS: BP 134/90
[2023-09-13 09:00] VITALS: BP 143/84
[2023-09-13 09:05] VITALS: BP 134/90; BP 143/84; PULSE 94; PULSE 95; O2SAT 96; O2SAT 98
--- NOTE | 2023-09-13 09:41 | W.PN.CD ---
Today's Communication / Plan
-
- stable for discharge
Impression / Plan
-
:
S/P 26mm Ramya S3 TAVR- 09/07. No acute complications and good hemodynamic result. Spiked fever to 102.9 09/08 AM.
WBC 19.9k now down to 12.7. BC x 2 drawn. Urine cx sent.
ID is following and treating empirically with antibiotics.
ECHO 09/08 shows gradient 3 mm Hg and no AI
- OK to resume brilinta/ ASA and Metoprolol.
Fever: ID to decide about ABX while blood cultures percolate
Severe conduction system disease
-alternating BBB -suggestive of infrahisian block
- had LBBB and then some RBBB.
-multiple pauses
- s/p dual chamber PPM
Outpt teamsite developer Rafael Carey
- follow up in 1 week
Physical Exam
Vital Signs/Labs
Vital Signs
Temp Pulse Resp BP Pulse Ox
97.6 F 92 16 113/74 97
09/13/23 06:44 09/13/23 06:46 09/13/23 06:44 09/13/23 06:46 09/13/23 07:30
09/12/23 09/13/23 09/14/23
06:59 06:59 06:59
Actual Weight 78 kg
09/13/23 02:10
09/13/23 02:10
PT 14.0 Sec (11.4-14.6) 09/10/23 05:47
INR 1.09 09/10/23 05:47
APTT 33.3 Sec (23.4-35.0) 09/10/23 05:47
Magnesium 2.8 mg/dl (1.6-2.3) H 09/13/23 02:10
08/29/23
09:28
Pqw-M-Dyvhlhotliy Pept 2530
Physical Exam
Constitutional: No acute distress and Comfortable
EENT: Anicteric and Moist mucous membranes
Cardiovascular: Rhythm & rate is regular, Pedal edema is absent and JVD pressure is normal
Respiratory: Respiratory effort normal, Lungs clear to auscul. and Wheeze Absent
GI: Soft and Non tender
Neuro/Psych: Alert, Oriented and AO x 3
Other: Cardiac Device Site
Data Reviewed
-
Date of Service: September 13, 2023
Medical Decision Making: Reviewed Test Results and Independent Historian Assessment
EKG: Tracing Personally Visualized and interpreted
Echo: Report Reviewed by me
Labs: Labs Reviewed by me
Old Records: Reviewed
[2023-09-13] MEDS: MILK OF MAGNESIA 30 ML PO (11:33)
--- NOTE | 2023-09-13 12:07 | PTCARENOTE ---
Pt denies any pain or discomfort. Left pacer incision clean and dry with aquacell intact. Left arm immoblizer intact this am and removed for discharge. Pt discharged to home with his and son. Discharge instructions given and reviewed with pt,
pt's and son using the Ipad medical reviewer. Pt and family verbalize complete understanding and all questions answered.
== END 2023-09-13 12:13 | disposition home health service (06) | DRG 266 ==
LOC: IVU 07:04
PROVIDERS: Clinical Nurse Specialist Acute Care; Internal Medicine Cardiovascular Disease; Physician Assistant Medical; ADMITTING PHYSICIAN Thoracic Surgery (Cardiothoracic Vascular Surgery); CONSULT PHYSICIAN Internal Medicine Infectious Disease; FAMILY PHYSICIAN Nurse Practitioner Adult Health
PROC: 02RF38Z Replacement of Aortic Valve with Zooplastic Tissue, Percutaneous Approach (ICD-10-PCS; 2023-09-08)
PROC: 0JH606Z Insertion of Pacemaker, Dual Chamber into Chest Subcutaneous Tissue and Fascia, Open Approach (ICD-10-PCS; 2023-09-12)
PROC: 02H63JZ Insertion of Pacemaker Lead into Right Atrium, Percutaneous Approach (ICD-10-PCS; 2023-09-12)
PROC: 02HK3JZ Insertion of Pacemaker Lead into Right Ventricle, Percutaneous Approach (ICD-10-PCS; 2023-09-12)
DX: I35.0 Nonrheumatic aortic (valve) stenosis (principal); I50.33 Acute on chronic diastolic (congestive) heart failure; I45.2 Bifascicular block; E87.1 Hypo-osmolality and hyponatremia; I70.201 Unspecified atherosclerosis of native arteries of extremities, right leg; I11.0 Hypertensive heart disease with heart failure; E78.5 Hyperlipidemia, unspecified; E11.51 Type 2 diabetes mellitus with diabetic peripheral angiopathy without gangrene; E66.9 Obesity, unspecified; I45.5 Other specified heart block; I25.10 Atherosclerotic heart disease of native coronary artery without angina pectoris; R91.1 Solitary pulmonary nodule; R50.82 Postprocedural fever; I95.9 Hypotension, unspecified; R11.2 Nausea with vomiting, unspecified; R00.0 Tachycardia, unspecified; I25.2 Old myocardial infarction; Z11.52 Encounter for screening for COVID-19; Z68.26 Body mass index [BMI] 26.0-26.9, adult; Z79.82 Long term (current) use of aspirin; Z79.84 Long term (current) use of oral hypoglycemic drugs; Z79.899 Other long term (current) drug therapy; Z87.891 Personal history of nicotine dependence; Z95.5 Presence of coronary angioplasty implant and graft
CPT/HCPCS: 93308; 33208; 33361; 36415; 71045; 71046; 80048; 80053; 81003; 81015; 82248; 82962; 83036; 83735; 83880; 85025; 85027; 85347; 85610; 85730; 86850; 86900; 86901; 87040; 87070; 87077; 87086; 87147; 87502; 87811; 93005; 93306; 93321; 93325; 97163; 97167; C1760; C1769; C1785; C1892; C1894; C1898; Q9967

== ENCOUNTER 2023-10-14 06:13 | Day surgery (SDC) | payer OTHER, SELFPAY ==
[2023-10-14] VITALS (13 sets, daily range): BP systolic 118–169; BP diastolic 64–96; BMI 26.2
[2023-10-14] MEDS: NSS 233 ML IV (07:00)
[2023-10-14 07:11] LABS: Glucose - Point of Care 149 mg/dl (70-99)
--- NOTE | 2023-10-14 08:50 | ITS.CL.ANGIO ---
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
Angioplasty
Procedure Report:
PERIPHERAL ANGIOGRAM AND ANGIOPLASTY REPORT
Date of Procedure: 10/14/2023
Referring: Rafael Carey MD
Indication: Lifestyle limiting right lower extremity claudication with high-grade right external iliac artery stenosis
PROCEDURE SUMMARY:
1. Right iliofemoral angiogram demonstrating 70% right external iliac artery stenosis (16 mmHg resting gradient)
2. Successful stenting of right external iliac artery stenosis using 8 x 37 express stent
DESCRIPTION OF PROCEDURE: The patient returned for planned right external iliac artery GOODS LAYER with stent placement. He has lifestyle limiting right lower extremity claudication symptoms. A 5 [place] sheath was placed in the right femoral artery.
Angiography confirmed high-grade (70%) right external iliac artery stenosis with a widely patent common iliac artery. 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 There is 20% distal right common iliac artery stenosis.
The common femoral artery is widely patent. The profunda has 70% ostial stenosis. The SFA appears occluded in its proximal segment. A standard table J-wire could not be advanced through the lesion. A hydrophilic angled Glidewire was easily
advanced into the aorta over a multipurpose catheter. A gradient of 16 mmHg was recorded across the lesion. A 6 Ukrainian by 35 cm Cordis Brite tip sheath was advanced over the standard table J-wire into the common iliac artery. The sheath was
withdrawn proximal to the lesion and balloon angioplasty with a 6 x 20 mm balloon to 8 heather was accomplished. We then placed an 8 x 37 [employer] express stent across the lesion. The stent was carefully deployed in the ideal position at
maximum 8 heather of pressure. The final angiographic result was outstanding with no residual stenosis within the stented segment and resolution of the gradient as well.
ANTI-COAGULATION THERAPY
1: Heparin 6000 units
Closure Device Used: 6 Ukrainian Angio-Seal RFA
Radiation (mGy): 48
DAP (cm2.Gy): 8.2
Fluoroscopy time: 4.2 minutes
CONCLUSIONS: Successful stenting of 70% right external iliac artery stenosis using 8 x 37 mm [employer] express stent. Continue dual antiplatelet therapy for 3 months then aspirin monotherapy will be sufficient.
Copy to: Rafael Carey MD, APOLLO [facility]
Nikko Du MD, FAC, [facility]
[2023-10-14] MEDS: NSS 1000 IV (08:57)
[2023-10-14 13:22] LABS: ACT-LR - POC > 397 Seconds (116-155)
== END 2023-10-14 14:00 | disposition home or self-care (01) ==
LOC: CATH 06:13
PROVIDERS: ATTENDING PHYSICIAN Internal Medicine Cardiovascular Disease; FAMILY PHYSICIAN Nurse Practitioner Adult Health; OTHER PHYSICIAN Internal Medicine Cardiovascular Disease
DX: I70.213 Atherosclerosis of native arteries of extremities with intermittent claudication, bilateral legs (principal); Z79.82 Long term (current) use of aspirin; Z79.02 Long term (current) use of antithrombotics/antiplatelets; Z95.0 Presence of cardiac pacemaker; Z95.3 Presence of xenogenic heart valve; I10 Essential (primary) hypertension; I25.2 Old myocardial infarction; E11.9 Type 2 diabetes mellitus without complications; Z87.891 Personal history of nicotine dependence; Z95.5 Presence of coronary angioplasty implant and graft; I25.10 Atherosclerotic heart disease of native coronary artery without angina pectoris; Z79.84 Long term (current) use of oral hypoglycemic drugs
CPT/HCPCS: 37221; 82962; 85347; C1760; C1876; C1894; G0278; Q9967